=== PATIENT | female | born 1960 | race Caucasian/White ===

== ENCOUNTER 2016-08-22 02:55 | Emergency (ER) | payer OTHER ==
[2016-08-22 03:00] VITALS: BP 142/81
--- NOTE | 2016-11-22 23:18 | ED ---
David Hernandez Claudia, scribed for Geraldo Fabian MD on 08/22/16 at 0302 . Substance Abuse/Use - HPI Summary HPI Summary: Pt comes to the ED tonight seeking detox. Pt notes that her last ETOH consumption was at 5:30-6:00pm. She notes that she fell asleep and woke up shaking. She states that she tried to drink 1/2 a drink while she called the EMS but was unable to finish it. Pt left AMA. - History Of Current Complaint Stated Complaint: SHAKING Hx Obtained From: Patient - Allergies/Home Medications Allergies/Adverse Reactions: Allergies Allergy/AdvReac Type Severity Reaction Status Date / Time Iodine Allergy Severe Anaphylatic Verified 10/16/16 20:42 Shock Penicillins Allergy Severe Swelling Verified 10/16/16 20:42 Of Face,Lips,& Throat Shellfish Allergy Allergy Severe Anaphylatic Verified 10/16/16 20:42 Shock Sulfa Drugs Allergy Intermediate Rash Verified 10/16/16 20:42 Olanzapine [From Zyprexa] Allergy FLU LIKE Verified 10/16/16 20:42 SYMPTOMS Hydromorphone [From Dilaudid] AdvReac Intermediate Altered Verified 10/16/16 20: 42 Mental Status PMH/Surg Hx/FS Hx/Imm Hx Previously Healthy: Yes Endocrine/Hematology History: Reports: Hx Blood Transfusions - 2003, Hx Bone Marrow Disease, Hx Anemia - aplastic anemia, Hx Unexplained Bleeding Denies: Hx Anticoagulant Therapy, Hx Blood Disorders, Hx Diabetes, Hx Systemic Lupus Erythematosus, Hx Sickle Cell Disease, Hx Thyroid Disease, Other Endocrine/Hematological Disorders Cardiovascular History: Reports: Hx Hypertension, Other Cardiovascular Problems/ Disorders - HEART MURMUR Denies: Hx Aneurysm, Hx Angina, Hx Angioplasty, Hx Auto Implanted Cardiovert Defib, Hx Cardiac Arrest, Hx Cardiomegaly, Hx Congenital Heart Disease, Hx Congestive Heart Failure, Hx Coronary Artery Disease, Hx Deep Vein Thrombosis, Hx Embolism, Hx Hypercholesterolemia, Hx Hypotension, Hx Pacemaker/ICD, Hx Peripheral Vascular Disease, Hx Rheumatic Fever, Hx Syncope, Hx Valvular Heart Disease Respiratory History: Reports: Hx Seasonal Allergies Denies: Hx Asthma, Hx Chronic Bronchitis, Hx Chronic Obstructive Pulmonary Disease (COPD), Hx Cystic Fibrosis, Hx Lung Cancer, Hx Pleural Effusion, Hx Pneumonia, Hx Pulmonary Edema, Hx Pulmonary Embolism, Hx Sleep Apnea, Other Respiratory Problems/Disorders GI History: Reports: Hx Gastroesophageal Reflux Disease, Hx Ulcer - age 8 & 10 Denies: Hx Cirrhosis, Hx Crohn's Disease, Hx Diverticulosis, Hx Gall Bladder Disease, Hx Gastrointestinal Bleed, Hx Hiatal Hernia, Hx Irritable Bowel, Hx Jaundice, Hx Obstructive Bowel, Hx Ileostomy, Hx Pyloric Stenosis, Other GI Disorders History: Reports: Hx Kidney Stones - 2007, Other Problems/Disorders - urethritis Denies: Hx Acute Renal Failure, Hx Benign Prostatic Hyperplasia, Hx Chronic Renal Failure, Hx Dialysis, Hx Kidney Infection Musculoskeletal History: Reports: Hx Arthritis, Other Musculoskeletal History - fx 5th metatarsal 2 wks ago, wearing boot Denies: Hx Back Problems, Hx Bursitis, Hx Congenital Bone Abnormalities, Hx Fibromyalgia, Hx Gout, Hx Orthopedic Injury, Hx Osteoporosis, Hx Scoliosis, Hx Tendonitis Sensory History: Reports: Hx Contacts or Glasses - reading glasses Denies: Hx Cataracts, Hx Eye Injury, Hx Eye Prosthesis, Hx Glaucoma, Hx Legally Blind, Hx Macular Degeneration, Hx Vision Problem, Hx Deafness, Hx Hearing Aid, Hx Hearing Problem, Other Sensory Impairments Opthamlomology History: Reports: Hx Contacts or Glasses - reading glasses Denies: Hx Cataracts, Hx Eye Injury, Hx Eye Prosthesis, Hx Glaucoma, Hx Legally Blind, Hx Macular Degeneration, Hx Vision Problem, Other Sensory Impairments Neurological History: Reports: Other Neuro Impairments/Disorders - head injury Psychiatric History: Reports: Hx Anxiety, Hx Eating Disorder - anorexia and bulimia, Hx Depression, Hx Panic Disorder, Hx Post Traumatic Stress Disorder, Hx Inpatient Treatment - [facility], [facility], Hx Suicide Attempt - 1972, Hx Substance Abuse Denies: Hx Attention Deficit Hyperactivity Disorder, Hx Schizophrenia, Hx Bipolar Disorder, Hx of Violent Episodes Against Others, Other Psychiatric Issues/Disorders - Surgical History Surgery Procedure, Year, and Place: Attempted urethral enlargement age 7. Tubal ligation 1986. Breast implants 2006. Has had multiple implanted venous access devices; none currently. Hx Anesthesia Reactions: No - Immunization History Date of Tetanus Vaccine: up to date per patient Date of Influenza Vaccine: NONE Infectious Disease History: Reports: Hx Hepatitis - hep C Denies: Hx Clostridium Difficile, Hx Human Immunodeficiency Virus (HIV), Hx of Known/Suspected MRSA, Hx Shingles, Hx Tuberculosis, Hx Known/Suspected VRE, Hx Known/Suspected VRSA, History Other Infectious Disease - Family History Known Family History: Positive: Other - 'everything runs in the family' - Social History Alcohol Use: Daily Alcohol Amount: pt is a recovering alcoholic, pt reports using Vodka as pain med. this AM Hx Substance Use: No Substance Use Type: Reports: None Substance Use Comment - Amount & Last Used: 04/03/14 Hx Tobacco Use: Yes Smoking Status (MU): Light Every Day Tobacco Smoker Type: Cigarettes Length of Time of Smoking/Using Tobacco: 25 yrs Have You Smoked in the Last Year: No Review of Systems Negative: Fever Eyes: Negative ENT: Negative Cardiovascular: Negative Respiratory: Negative Gastrointestinal: Negative Genitourinary: Negative Musculoskeletal: Negative Skin: Negative Neurological: Other - "shaking" Psychological: Normal All Other Systems Reviewed And Are Negative: Yes Physical Exam Vital Signs On Initial Exam: Initial Vitals Temp Pulse Resp BP Pulse Ox 97.9 F 111 18 142/81 98 08/22/16 02:55 08/22/16 02:55 08/22/16 02:55 08/22/16 02:55 08/22/16 02:55 Diagnostics - Vital Signs Vital Signs Temp Pulse Resp BP Pulse Ox 08/22/16 02:55 97.9 F 111 18 142/81 98 - Laboratory Lab Statement: Any lab studies that have been ordered have been reviewed, and results considered in the medical decision making process. Course/Dx - Diagnoses Provider Diagnoses: Mood disorder Discharge - Discharge Plan Condition: Stable Disposition: LEFT WITHOUT BEING SEEN Referrals: Jeny Hensley MD [Primary Care Provider] - The documentation as recorded by the David mcnair Claudia accurately reflects the service I personally performed and the decisions made by , Geraldo Fabian MD.
== END 2016-08-22 03:02 | disposition left against medical advice (07) ==
LOC: ED 02:55
DX: R25.1 Tremor, unspecified (principal)

== ENCOUNTER 2016-10-04 10:18 | Emergency (ER) | payer OTHER ==
[2016-10-04 10:35] VITALS: BP 140/84
[2016-10-04] MEDS ORDERED: Ketorolac INJ* 60 MG/2 ML VIAL IM ONE (10:50)
--- NOTE | 2016-10-04 11:19 | RAD ---
HISTORY: Fall, injury and pain, right chest pain COMPARISONS: None VIEWS: 5, Frontal view of the chest with frontal and oblique views of the right hemithorax. FINDINGS: There is a minimally displaced fracture of the right ninth rib. There is no appreciable pneumothorax IMPRESSION: RIGHT NINTH RIB FRACTURE. NO APPRECIABLE PNEUMOTHORAX.
--- NOTE | 2016-10-04 11:24 | UC ---
Truncal Trauma HPI - HPI Summary HPI Summary: Fell last night hitting right side of back on the wooden arm of a chair, hurts to breath - History Of Current Complaint Chief Complaint: UCRespiratory Stated Complaint: RIB INJURY Time Seen by Provider: 10/04/16 10:48 Hx Obtained From: Patient ?: No Onset/Duration: Sudden Onset, Lasting Hours - 12, Still Present Onset Of Pain: Immediate Severity Initially: Moderate Severity Currently: Moderate Pain Intensity: 10 Pain Scale Used: 0-10 Numeric Mechanism Of Injury: Blunt Trauma, Fall From A Standing Position Aggravating Factor(s): Deep Breathing, Cough Alleviating factor(s): Nothing Associated Signs And Symptoms: Positive: Negative - Allergies/Home Medications Allergies/Adverse Reactions: Allergies Allergy/AdvReac Type Severity Reaction Status Date / Time Iodine Allergy Severe Anaphylatic Verified 10/04/16 10:24 Shock Penicillins Allergy Severe Swelling Verified 10/04/16 10:24 Of Face,Lips,& Throat Shellfish Allergy Allergy Severe Anaphylatic Verified 10/04/16 10:24 Shock Sulfa Drugs Allergy Intermediate Rash Verified 10/04/16 10:24 Olanzapine [From Zyprexa] Allergy FLU LIKE Verified 10/04/16 10:24 SYMPTOMS Hydromorphone [From Dilaudid] AdvReac Intermediate Altered Verified 10/04/16 10: 24 Mental Status Home Medications: Home Medications Gabapentin CAP(*) [Neurontin 100 mg CAP(*)] 1 cap PO QID 10/04/16 [History Confirmed 10/04/16] Nicotine Lozenge* 1 josé manuel PO 10/04/16 [History] PMH/Surg Hx/FS Hx/Imm Hx Previously Healthy: No - reports 3 months of sobriety Endocrine History Of: Denies: Diabetes, Thyroid Disease Cardiovascular History Of: Reports: Hypertension Denies: Pacemaker/ICD, Congestive Heart Failure, Deep Vein Thrombosis Respiratory History Of: Denies: COPD, Asthma, Pneumonia, Pulmonary Embolism GI/ History Of: Reports: Ulcer - age 8 & 10, Kidney Stones - 2007 Denies: Gastrointestinal Bleed, Gall Bladder Disease Psychological History Of: Reports: Anxiety, Depression Denies: Bipolar Disorder, Schizophrenia Cancer History Of: Denies: Lung Cancer Other History Of: Negative For: Anticoagulant Therapy - Surgical History Surgical History: Yes Surgery Procedure, Year, and Place: Attempted urethral enlargement age 7. Tubal ligation 1986. Breast implants 2006. Has had multiple implanted venous access devices; none currently. - Family History Known Family History: Positive: Other - 'everything runs in the family' - Social History Occupation: Unemployed Lives: With Family Alcohol Use: Occasionally Alcohol Amount: 3 months in recovery Substance Use Type: None, Marijuana Substance Use Comment - Amount & Last Used: 04/03/14 Smoking Status (MU): Light Every Day Tobacco Smoker Type: Cigarettes Length of Time of Smoking/Using Tobacco: 25 yrs Have You Smoked in the Last Year: No Household Exposure Type: Cigarettes - Immunization History Most Recent Influenza Vaccination: 2013 Most Recent Tetanus Shot: 2008 Most Recent Pneumonia Vaccination: none Review of Systems Constitutional: Negative Skin: Negative Eyes: Negative ENT: Negative Respiratory: Negative Cardiovascular: Chest Pain - right posterior ribs tender to palpation Gastrointestinal: Negative Genitourinary: Negative Motor: Negative Neurovascular: Negative Musculoskeletal: Negative Neurological: Negative Psychological: Negative All Other Systems Reviewed And Are Negative: Yes Physical Exam Triage Information Reviewed: Yes Appearance: Ill-Appearing - older than stated age, Pain Distress, Thin Vital Signs: Initial Vital Signs Temp 98.4 F 10/04/16 10:28 Pulse 81 10/04/16 10:28 Resp 20 10/04/16 10:28 BP 140/84 10/04/16 10:28 Pulse Ox 98 10/04/16 10:28 Vital Signs Reviewed: Yes Eye Exam: Normal Eyes: Positive: Conjunctiva Clear ENT Exam: Normal ENT: Positive: Normal ENT inspection, Hearing grossly normal. Negative: Nasal congestion, Nasal drainage, Trismus, Muffled/hoarse voice Neck exam: Normal Neck: Positive: Supple, Nontender, No Lymphadenopathy Respiratory Exam: Normal Respiratory: Positive: Lungs clear, Normal breath sounds, No respiratory distress, No accessory muscle use, Other: - right posterior chest wall tender. Negative: Chest non-tender Cardiovascular Exam: Normal Cardiovascular: Positive: RRR, No Murmur, Pulses Normal, Brisk Capillary Refill Abdominal Exam: Normal Abdomen Description: Positive: Nontender, No Organomegaly, Soft. Negative: CVA Tenderness (R), CVA Tenderness (L) Bowel Sounds: Positive: Present Musculoskeletal Exam: Normal Musculoskeletal: Positive: Strength Intact, ROM Intact, No Edema Neurological Exam: Normal Neurological: Positive: Alert, Muscle Tone Normal Psychological Exam: Normal Skin Exam: Normal Diagnostics - Laboratory Diagnostic Studies Completed/Ordered: min.displaced (r)9th rib fracture, non pneumo. Re-Evaluation - Re-Evaluation Second Eval Change: Improved - excellent pain control Truncal Trauma Course/Dx - Course Course Of Treatment: ice to ribs, continue toradal, encourage smoking cesasation , antiinflammatory med, follow with pcp prn - Differential Dx/Diagnosis Differential Diagnosis/HQI/PQRI: Chest Wall Contusion, Chest Wall Abrasion, Rib Fracture Provider Diagnoses: minimally displacted fx of (R) 9th rib, nicotine dependant Discharge - Discharge Plan Condition: Stable Disposition: HOME Prescriptions: Ketorolac TAB (NF) [Toradol TAB (NF)] 10 mg PO TID PRN #15 tab PRN Reason: rib pain Patient Education Materials: Rib Fracture (ED), Ice Pack Application (ED), Rib Contusion (ED) Referrals: Karen Osuna DRESS CUTTER [Primary Care Provider] - 2 Days Additional Instructions: [facility] with using Nicotine Replacement to quit smoking that will have a huge and positive effect on your ability to heal from the injury
== END 2016-10-04 11:33 | disposition home or self-care (01) ==
LOC: UCEAST 10:18
DX: S22.31XB Fracture of one rib, right side, initial encounter for open fracture (principal); W08.XXXA Fall from other furniture, initial encounter; Z88.5 Allergy status to narcotic agent; I10 Essential (primary) hypertension
CPT/HCPCS: 81002; 87086; 96372; 99212; G0463; J1885

== ENCOUNTER 2016-10-16 20:24 | Emergency (ER) | payer OTHER ==
[2016-10-16 21:56] VITALS: BP 121/60
== END 2016-10-16 21:55 | disposition left against medical advice (07) ==
LOC: ED 20:24
DX: M79.672 Pain in left foot (principal); Z53.21 Procedure and treatment not carried out due to patient leaving prior to being seen by health care provider

== ENCOUNTER 2017-11-25 13:09 | Emergency (ER) | payer SELFPAY ==
[2017-11-25] MEDS ORDERED: Thiamine IV 100 MG, Folic Acid IV* 1 MG, Multiple Vitamin IV ADULT* 10 ML in NS 0.9% 10... IV ONE (13:26)
[2017-11-25] MEDS ORDERED: LORazepam INJ* 2 MG/ML 1 ML VIAL IV ONE (13:26)
[2017-11-25] MEDS ORDERED: Folic Acid IV* 50 MG/10 ML VIAL ONE (13:50)
[2017-11-25] MEDS ORDERED: Multiple Vitamin IV ADULT* 10 ML VIAL ONE (13:50)
[2017-11-25] MEDS ORDERED: NS 0.9% 1000 ML* 1,000 ML ONE (13:50)
[2017-11-25 13:52] LABS: ABS Basophils 0 10^3/ul (0-0.2); ABS Eosinophils 0 10^3/ul (0-0.6); ABS Lymphocytes 2.5 10^3/ul (1.0-4.8); ABS Monocytes 0.5 10^3/ul (0-0.8); ABS Neutrophils 2.3 10^3/ul (1.5-7.7); ABS Nucleated RBC 0 10^3/ul; Eosinophil % 0.8 % (0-6); Hematocrit 46 % (35-47); Lymphocyte % 46.6 % (25-47); Mean Corpuscular HGB Conc 35 g/dl (31-36); Mean Corpuscular Hemoglobin 35 pg (27-31); Mean Corpuscular Volume 101 fL (80-97); Nucleated Red Blood Cells % 0.1; Platelet Count 245 10^3/ul (150-450); Red Blood Count 4.54 10^6/ul (4.0-5.4); Red Cell Distribution Width 14 % (10.5-15); White Blood Count 5.4 10^3/ul (3.5-10.8)
[2017-11-25] MEDS ORDERED: Thiamine IV* 100 MG/ML 2 ML VIAL ONE (13:58)
[2017-11-25] MEDS ORDERED: LORazepam TAB(*) 1 MG PO ONE (16:04)
[2017-11-25] MEDS ORDERED: Mouth Piece, Nicotine* 1 EACH CARTRIDGE INH PRN (16:04)
[2017-11-25] MEDS ORDERED: Nicotine Inhaler* 10 MG AMP INH ONE (16:04)
[2017-11-25] MEDS ORDERED: Mouth Piece, Nicotine* 1 EACH CARTRIDGE ONE (16:08)
--- NOTE | 2017-11-25 19:36 | ED ---
Shazia Hernandez Abhishek, scribed for Katie Reyes MD on 11/25/17 at 1933 . Progress - Progress Note Progress Note: The pt was signed out from Dr. Limon awaiting EtOH metabolism. The pt was able to walk without assistance and is awake and alert upon evaluation. Course/Dx - Course Course Of Treatment: The pt will be d/c home with a dx of EtOH intoxication. - Diagnoses Provider Diagnoses: Alcohol intoxication Discharge - Sign-Out/Discharge Documenting (check all that apply): Discharge - Home, Receiving Sign-Out Receiving patient FROM: Nacho Limon - Discharge Plan Condition: Stable Disposition: HOME Referrals: Jeny Hensley MD [Primary Care Provider] - The documentation as recorded by the Shazia mcnair Abhishek accurately reflects the service I personally performed and the decisions made by Eric mackey Abdul, MD.
[2017-11-25 19:43] VITALS: BP 115/81
--- NOTE | 2017-11-27 11:00 | ED ---
Ji Hernandez Angela, scribed for Nacho Limon MD on 11/25/17 at 1330 . Psychiatric Complaint - HPI Summary HPI Summary: This pt is a 57 y/o female presenting to [facility] via EMS for anxiety and alcohol intoxication. Pt reports that she has had panic attacks for the past 1 week. She states she has been drinking wine every day for the past week and notes she had "a lot" of wine. Today pt reports she had 4 glasses of wine to alleviate her panic attacks with no relief. Denies SI or HI. Pt notes she has hx of substance abuse and began drinking alcohol again 1 week ago due to anxiety. Denies drug use. - History Of Current Complaint Chief Complaint: EDPsychosocial Time Seen by Provider: 11/25/17 13:20 Hx Obtained From: Patient Onset/Duration: Lasting Days, Still Present Timing: Days Severity Currently: Moderate Character: Anxious Aggravating Factor(s): Nothing Alleviating Factor(s): Nothing Associated Signs And Symptoms: Positive: Negative Has Suicidal: Denies: Thoughts, With A Plan Has Homicidal: Denies: Thoughts, With A Plan - Allergies/Home Medications Allergies/Adverse Reactions: Allergies Allergy/AdvReac Type Severity Reaction Status Date / Time hydromorphone Allergy Altered Verified 11/25/17 13:23 Mental Status iodine Allergy Anaphylatic Verified 11/25/17 13:23 Shock olanzapine [From Zyprexa] Allergy Anaphylatic Verified 11/25/17 13:23 Shock Penicillins Allergy Swelling Verified 11/25/17 13:23 Of Face,Lips,& Throat shellfish derived Allergy Anaphylatic Verified 11/25/17 13:23 Shock Sulfa (Sulfonamide Allergy Rash Verified 11/25/17 13:23 Antibiotics) Home Medications: Home Medications NK [No Home Medications Reported] 11/25/17 [History Confirmed 11/25/17] PMH/Surg Hx/FS Hx/Imm Hx Endocrine/Hematology History: Reports: Hx Blood Transfusions - 2004, Hx Bone Marrow Disease, Hx Anemia - aplastic anemia, Hx Unexplained Bleeding Denies: Hx Anticoagulant Therapy, Hx Blood Disorders, Hx Diabetes, Hx Systemic Lupus Erythematosus, Hx Sickle Cell Disease, Hx Thyroid Disease, Other Endocrine/Hematological Disorders Cardiovascular History: Reports: Hx Hypertension, Other Cardiovascular Problems/ Disorders - HEART MURMUR Denies: Hx Aneurysm, Hx Angina, Hx Angioplasty, Hx Auto Implanted Cardiovert Defib, Hx Cardiac Arrest, Hx Cardiomegaly, Hx Congenital Heart Disease, Hx Congestive Heart Failure, Hx Coronary Artery Disease, Hx Deep Vein Thrombosis, Hx Embolism, Hx Hypercholesterolemia, Hx Hypotension, Hx Pacemaker/ICD, Hx Peripheral Vascular Disease, Hx Rheumatic Fever, Hx Syncope, Hx Valvular Heart Disease Respiratory History: Reports: Hx Seasonal Allergies Denies: Hx Asthma, Hx Chronic Bronchitis, Hx Chronic Obstructive Pulmonary Disease (COPD), Hx Cystic Fibrosis, Hx Lung Cancer, Hx Pleural Effusion, Hx Pneumonia, Hx Pulmonary Edema, Hx Pulmonary Embolism, Hx Sleep Apnea, Other Respiratory Problems/Disorders GI History: Reports: Hx Gastroesophageal Reflux Disease, Hx Ulcer - age 8 & 10 Denies: Hx Cirrhosis, Hx Crohn's Disease, Hx Diverticulosis, Hx Gall Bladder Disease, Hx Gastrointestinal Bleed, Hx Hiatal Hernia, Hx Irritable Bowel, Hx Jaundice, Hx Obstructive Bowel, Hx Ileostomy, Hx Pyloric Stenosis, Other GI Disorders History: Reports: Hx Kidney Stones - 2007, Other Problems/Disorders - urethritis Denies: Hx Acute Renal Failure, Hx Benign Prostatic Hyperplasia, Hx Chronic Renal Failure, Hx Dialysis, Hx Kidney Infection Musculoskeletal History: Reports: Hx Arthritis, Other Musculoskeletal History - fx 5th metatarsal 2 wks ago, wearing boot Denies: Hx Back Problems, Hx Bursitis, Hx Congenital Bone Abnormalities, Hx Fibromyalgia, Hx Gout, Hx Orthopedic Injury, Hx Osteoporosis, Hx Scoliosis, Hx Tendonitis Sensory History: Reports: Hx Contacts or Glasses - reading glasses Denies: Hx Cataracts, Hx Eye Injury, Hx Eye Prosthesis, Hx Glaucoma, Hx Legally Blind, Hx Macular Degeneration, Hx Vision Problem, Hx Deafness, Hx Hearing Aid, Hx Hearing Problem, Other Sensory Impairments Opthamlomology History: Reports: Hx Contacts or Glasses - reading glasses Denies: Hx Cataracts, Hx Eye Injury, Hx Eye Prosthesis, Hx Glaucoma, Hx Legally Blind, Hx Macular Degeneration, Hx Vision Problem, Other Sensory Impairments Neurological History: Reports: Other Neuro Impairments/Disorders - head injury Psychiatric History: Reports: Hx Anxiety, Hx Eating Disorder - anorexia and bulimia, Hx Depression, Hx Panic Disorder, Hx Post Traumatic Stress Disorder, Hx Inpatient Treatment - [facility], Hx Suicide Attempt - 1972, Hx Substance Abuse Denies: Hx Attention Deficit Hyperactivity Disorder, Hx Schizophrenia, Hx Bipolar Disorder, Hx of Violent Episodes Against Others, Other Psychiatric Issues/Disorders - Surgical History Surgery Procedure, Year, and Place: Attempted urethral enlargement age 7. Tubal ligation 1986. Breast implants 2006. Has had multiple implanted venous access devices; none currently. Hx Anesthesia Reactions: No - Immunization History Date of Tetanus Vaccine: up to date per patient Date of Influenza Vaccine: NONE Infectious Disease History: No Infectious Disease History: Denies: Hx Clostridium Difficile, Hx Hepatitis, Hx Human Immunodeficiency Virus (HIV), Hx of Known/Suspected MRSA, Hx Shingles, Hx Tuberculosis, Hx Known/ Suspected VRE, Hx Known/Suspected VRSA, History Other Infectious Disease, Traveled Outside the [place] in Last 30 Days - Family History Known Family History: Positive: Other - 'everything runs in the family' - Social History Alcohol Use: wine Alcohol Amount: wine this week Hx Substance Use: No Substance Use Type: Reports: None Substance Use Comment - Amount & Last Used: 04/03/14 Hx Tobacco Use: Yes Smoking Status (MU): Light Every Day Tobacco Smoker Type: Cigarettes Length of Time of Smoking/Using Tobacco: 25 yrs Have You Smoked in the Last Year: No Review of Systems Negative: Fever, Chills Eyes: Negative ENT: Negative Cardiovascular: Negative Respiratory: Negative Skin: Negative Positive: Anxious All Other Systems Reviewed And Are Negative: Yes Physical Exam - Summary Physical Exam Summary: VITAL SIGNS: Reviewed. GENERAL: Patient is a well-developed and nourished female who is lying comfortable in the stretcher. Patient is not in any acute respiratory distress. Pt is intoxicated with alcohol. HEAD AND FACE: No signs of trauma. No ecchymosis, hematomas or skull depressions. No sinus tenderness. EYES: PERRLA, EOMI x 2, No injected conjunctiva, no nystagmus. EARS: Hearing grossly intact. Ear canals and tympanic membranes are within normal limits. MOUTH: Oropharynx within normal limits. NECK: Supple, trachea is midline, no adenopathy, no JVD, no carotid bruit, no c- spine tenderness, neck with full ROM. CHEST: Symmetric, no tenderness at palpation LUNGS: Clear to auscultation bilaterally. No wheezing or crackles. CVS: Regular rate and rhythm, S1 and S2 present, no murmurs or gallops appreciated. ABDOMEN: Soft, non-tender. No signs of distention. No rebound no guarding, and no masses palpated. Bowel sounds are normal. EXTREMITIES: FROM in all major joints, no edema, no cyanosis or clubbing. NEURO: Alert and oriented x 3. No acute neurological deficits. Speech is normal and follows commands. SKIN: Dry and warm Triage Information Reviewed: Yes Vital Signs On Initial Exam: Initial Vitals Temp Pulse Resp BP Pulse Ox 98.3 F 91 17 139/89 96 11/25/17 13:19 11/25/17 13:19 11/25/17 13:19 11/25/17 13:19 11/25/17 13:19 Vital Signs Reviewed: Yes Diagnostics - Vital Signs Vital Signs Temp Pulse Resp BP Pulse Ox 11/25/17 13:20 95 16 96 11/25/17 13:19 98.3 F 91 17 139/89 96 - Laboratory Result Diagrams: 11/25/17 13:35 11/25/17 13:35 Lab Statement: Any lab studies that have been ordered have been reviewed, and results considered in the medical decision making process. Course/Dx - Course Assessment/Plan: This pt is a 57 y/o female presenting to [facility] via EMS for anxiety and alcohol intoxication. Pt reports that she has had panic attacks for the past 1 week. She states she has been drinking wine every day for the past week and notes she had "a lot" of wine. Today pt reports she had 4 glasses of wine to alleviate her panic attacks with no relief. Denies SI or HI. Pt notes she has hx of substance abuse and began drinking alcohol again 1 week ago due to anxiety. Denies drug use. Test results without any significant abnormalities except for serum alcohol of 321. Pt will be sober at approximately 23:30. Pt is currently stable. Therefore pt will be signed out to Dr. Reyes, pending disposition, awaiting alcohol metabolism. Pt is hemodynamically stable, alert and oriented x3. - Differential Dx/Clinical Impression Provider Diagnosis: Alcohol intoxication Discharge - Sign-Out/Discharge Documenting (check all that apply): Sign-Out Patient Signing out patient TO: Katie Reyes - Discharge Plan Condition: Stable Referrals: Jeny Hensley MD [Primary Care Provider] - The documentation as recorded by the Ji mcnair Angela accurately reflects the service I personally performed and the decisions made by , Nacho Limon MD.
== END 2017-11-25 19:48 | disposition home or self-care (01) ==
LOC: ED 13:09
DX: F10.129 Alcohol abuse with intoxication, unspecified (principal); Y90.8 Blood alcohol level of 240 mg/100 ml or more; F41.0 Panic disorder [episodic paroxysmal anxiety]; D75.9 Disease of blood and blood-forming organs, unspecified; D61.9 Aplastic anemia, unspecified; I10 Essential (primary) hypertension; K21.9 Gastro-esophageal reflux disease without esophagitis; F32.9 Major depressive disorder, single episode, unspecified; Z88.3 Allergy status to other anti-infective agents; Z88.5 Allergy status to narcotic agent; Z88.0 Allergy status to penicillin; Z88.2 Allergy status to sulfonamides; Z88.8 Allergy status to other drugs, medicaments and biological substances; Z87.442 Personal history of urinary calculi; Z87.891 Personal history of nicotine dependence
CPT/HCPCS: 36415; 80053; 80320; 80329; 84443; 85025; 96374; 99283; A9270-GY; G0480; J2060; J3411

== ENCOUNTER → 2017-12-31 09:06 | Emergency (ER) | payer SELFPAY ==
[~2017-12-31 09:06] MED LIST: LORazepam TAB(*) 1 MG PO ONE
[2017-12-31 10:02] LABS: ABS Basophils 0 10^3/ul (0-0.2); ABS Eosinophils 0.1 10^3/ul (0-0.6); ABS Lymphocytes 1.8 10^3/ul (1.0-4.8); ABS Monocytes 0.5 10^3/ul (0-0.8); ABS Neutrophils 2.8 10^3/ul (1.5-7.7); ABS Nucleated RBC 0 10^3/ul; Eosinophil % 1.1 % (0-6); Hematocrit 40 % (35-47); Hemoglobin 14.3 g/dl (12.0-16.0); Lymphocyte % 34.5 % (25-47); Mean Corpuscular HGB Conc 36 g/dl (31-36); Mean Corpuscular Hemoglobin 37 pg (27-31); Mean Corpuscular Volume 103 fL (80-97); Mean Platelet Volume 8.1 um3 (7.4-10.4); Nucleated Red Blood Cells % 0; Platelet Count 331 10^3/ul (150-450); Red Cell Distribution Width 14 % (10.5-15); White Blood Count 5.2 10^3/ul (3.5-10.8)
[2017-12-31 10:20] LABS: EGFR Non-African American 97.1 (>60)
[2017-12-31 10:52] LABS: Urine Appearance Clear; Urine Blood 2+ (Negative); Urine Color Yellow; Urine Ketones Trace (Negative); Urine Protein 2+(100 mg/dL) (Negative); Urine Specific Gravity 1.011 (1.010-1.030); Urine Urobilinogen Negative (Negative)
[2017-12-31 17:37] VITALS: BP 148/91
--- NOTE | 2017-12-31 18:23 | ED ---
Carmenza Hernandez Tenzin, scribed for Kyaw Aquino MD on 12/31/17 at 1015 . Psychiatric Complaint - HPI Summary HPI Summary: Pt is a 57 years old female presenting to the ED complaining of anxiety and suicidal thoughts today. She also complains of insomnia over the last few weeks and flashbacks. She has a past medical history of PTSD and aplastic anemia. - History Of Current Complaint Chief Complaint: EDMentalHealth Time Seen by Provider: 12/31/17 09:20 Hx Obtained From: Patient Onset/Duration: Lasting Weeks - in the last few months. Timing: Weeks Severity Initially: Mild Severity Currently: Mild Character: Anxious Aggravating Factor(s): Nothing Alleviating Factor(s): Nothing Associated Signs And Symptoms: Positive: Sleep Disturbance Related History: Positive For: Prior Psychiatric Issues Has Suicidal: Reports: Thoughts - Allergies/Home Medications Allergies/Adverse Reactions: Allergies Allergy/AdvReac Type Severity Reaction Status Date / Time hydromorphone Allergy Altered Verified 12/31/17 09:37 Mental Status iodine Allergy Anaphylatic Verified 12/31/17 09:37 Shock olanzapine [From Zyprexa] Allergy Anaphylatic Verified 12/31/17 09:37 Shock Penicillins Allergy Swelling Verified 12/31/17 09:37 Of Face,Lips,& Throat shellfish derived Allergy Anaphylatic Verified 12/31/17 09:37 Shock Sulfa (Sulfonamide Allergy Rash Verified 12/31/17 09:37 Antibiotics) PMH/Surg Hx/FS Hx/Imm Hx Endocrine/Hematology History: Reports: Hx Blood Transfusions - 2004, Hx Bone Marrow Disease, Hx Anemia - aplastic anemia, Hx Unexplained Bleeding Denies: Hx Anticoagulant Therapy, Hx Blood Disorders, Hx Diabetes, Hx Systemic Lupus Erythematosus, Hx Sickle Cell Disease, Hx Thyroid Disease, Other Endocrine/Hematological Disorders Cardiovascular History: Reports: Hx Hypertension, Other Cardiovascular Problems/ Disorders - HEART MURMUR Denies: Hx Aneurysm, Hx Angina, Hx Angioplasty, Hx Auto Implanted Cardiovert Defib, Hx Cardiac Arrest, Hx Cardiomegaly, Hx Congenital Heart Disease, Hx Congestive Heart Failure, Hx Coronary Artery Disease, Hx Deep Vein Thrombosis, Hx Embolism, Hx Hypercholesterolemia, Hx Hypotension, Hx Pacemaker/ICD, Hx Peripheral Vascular Disease, Hx Rheumatic Fever, Hx Syncope, Hx Valvular Heart Disease Respiratory History: Reports: Hx Seasonal Allergies Denies: Hx Asthma, Hx Chronic Bronchitis, Hx Chronic Obstructive Pulmonary Disease (COPD), Hx Cystic Fibrosis, Hx Lung Cancer, Hx Pleural Effusion, Hx Pneumonia, Hx Pulmonary Edema, Hx Pulmonary Embolism, Hx Sleep Apnea, Other Respiratory Problems/Disorders GI History: Reports: Hx Gastroesophageal Reflux Disease, Hx Ulcer - age 8 & 10 Denies: Hx Cirrhosis, Hx Crohn's Disease, Hx Diverticulosis, Hx Gall Bladder Disease, Hx Gastrointestinal Bleed, Hx Hiatal Hernia, Hx Irritable Bowel, Hx Jaundice, Hx Obstructive Bowel, Hx Ileostomy, Hx Pyloric Stenosis, Other GI Disorders History: Reports: Hx Kidney Stones - 2007, Other Problems/Disorders - urethritis Denies: Hx Acute Renal Failure, Hx Benign Prostatic Hyperplasia, Hx Chronic Renal Failure, Hx Dialysis, Hx Kidney Infection Musculoskeletal History: Reports: Hx Arthritis, Other Musculoskeletal History - fx 5th metatarsal 2 wks ago, wearing boot Denies: Hx Back Problems, Hx Bursitis, Hx Congenital Bone Abnormalities, Hx Fibromyalgia, Hx Gout, Hx Orthopedic Injury, Hx Osteoporosis, Hx Scoliosis, Hx Tendonitis Sensory History: Reports: Hx Contacts or Glasses - reading glasses Denies: Hx Cataracts, Hx Eye Injury, Hx Eye Prosthesis, Hx Glaucoma, Hx Legally Blind, Hx Macular Degeneration, Hx Vision Problem, Hx Deafness, Hx Hearing Aid, Hx Hearing Problem, Other Sensory Impairments Opthamlomology History: Reports: Hx Contacts or Glasses - reading glasses Denies: Hx Cataracts, Hx Eye Injury, Hx Eye Prosthesis, Hx Glaucoma, Hx Legally Blind, Hx Macular Degeneration, Hx Vision Problem, Other Sensory Impairments Neurological History: Reports: Other Neuro Impairments/Disorders - head injury Psychiatric History: Reports: Hx Anxiety, Hx Eating Disorder - anorexia and bulimia, Hx Depression, Hx Panic Disorder, Hx Post Traumatic Stress Disorder, Hx Inpatient Treatment - [facility], [facility], Hx Suicide Attempt - 1972, Hx Substance Abuse Denies: Hx Attention Deficit Hyperactivity Disorder, Hx Schizophrenia, Hx Bipolar Disorder, Hx of Violent Episodes Against Others, Other Psychiatric Issues/Disorders - Surgical History Surgery Procedure, Year, and Place: Attempted urethral enlargement age 7. Tubal ligation 1986. Breast implants 2006. Has had multiple implanted venous access devices; none currently. Hx Anesthesia Reactions: No - Immunization History Date of Tetanus Vaccine: up to date per patient Date of Influenza Vaccine: NONE Infectious Disease History: No Infectious Disease History: Denies: Hx Clostridium Difficile, Hx Hepatitis, Hx Human Immunodeficiency Virus (HIV), Hx of Known/Suspected MRSA, Hx Shingles, Hx Tuberculosis, Hx Known/ Suspected VRE, Hx Known/Suspected VRSA, History Other Infectious Disease, Traveled Outside the [place] in Last 30 Days - Family History Known Family History: Positive: Other - 'everything runs in the family' - Social History Alcohol Use: Daily Alcohol Amount: wine this week Hx Substance Use: No Substance Use Type: Reports: None Substance Use Comment - Amount & Last Used: 04/03/14 Hx Tobacco Use: Yes Smoking Status (MU): Light Every Day Tobacco Smoker Type: Cigarettes Length of Time of Smoking/Using Tobacco: 25 yrs Have You Smoked in the Last Year: No Review of Systems Positive: Other - flashes Positive: Anxious, Other - difficulty sleeping, suicidal thoughts All Other Systems Reviewed And Are Negative: Yes Physical Exam - Summary Physical Exam Summary: Appearance: The patient is well-nourished in no acute distress and in no acute pain. Skin: The skin is warm and dry and skin color reflects adequate perfusion. HEENT: The head is normocephalic and atraumatic. The pupils are equal and reactive. The conjunctivae are clear and without drainage. Nares are patent and without drainage. Mouth reveals moist mucous membranes and the throat is without erythema and exudate. The external ears are intact. The ear canals are patent and without drainage. The tympanic membranes are intact. Neck: the neck is supple with full range of motion and non-tender. There are no carotid bruits. There is no neck vein distension. Respiratory: Chest is non-tender. Lungs are clear to auscultation and breath sounds are symmetrical and equal. Cardiovascular: Heart is regular rate and rhythm. There is no murmur or rub auscultated. There is no peripheral edema and pulses are symmetrical and equal. Abdomen: The abdomen is soft and non-tender. There are normal bowel sounds heard in all four quadrants and there is no organomegaly palpated. Musculoskeletal: There is no back tenderness noted. Extremities are non-tender with full range of motion. There is good capillary refill. There is no peripheral edema or calf tenderness elicited. Neurological: Patient is alert and oriented to person, place and time. The patient has symmetrical motor strength in all four extremities. Cranial nerves are grossly intact. Deep tendon reflexes are symmetrical and equal in all four extremities. Psychiatric: The patient reports suicidal thoughts. Triage Information Reviewed: Yes Vital Signs On Initial Exam: Initial Vitals Temp Pulse Resp BP Pulse Ox 98.5 F 100 17 139/90 97 12/31/17 09:19 12/31/17 09:19 12/31/17 09:19 12/31/17 09:19 12/31/17 09:19 Vital Signs Reviewed: Yes Diagnostics - Vital Signs Vital Signs Temp Pulse Resp BP Pulse Ox 12/31/17 09:19 98.5 F 100 17 139/90 97 - Laboratory Lab Results: Lab Results 12/31/17 Range/Units 09:51 WBC 5.2 (3.5-10.8) 10^3/ul RBC 3.90 L (4.0-5.4) 10^6/ul Hgb 14.3 (12.0-16.0) g/dl Hct 40 (35-47) % MCV 103 H (80-97) fL MCH 37 H (27-31) pg MCHC 36 (31-36) g/dl RDW 14 (10.5-15) % Plt Count 331 (150-450) 10^3/ul MPV 8.1 (7.4-10.4) um3 Neut % (Auto) 54.3 (38-83) % Lymph % (Auto) 34.5 (25-47) % Mathews % (Auto) 9.4 H (0-7) % Eos % (Auto) 1.1 (0-6) % Baso % (Auto) 0.7 (0-2) % Absolute Neuts (auto) 2.8 (1.5-7.7) 10^3/ul Absolute Lymphs (auto) 1.8 (1.0-4.8) 10^3/ul Absolute Monos (auto) 0.5 (0-0.8) 10^3/ul Absolute Eos (auto) 0.1 (0-0.6) 10^3/ul Absolute Basos (auto) 0 (0-0.2) 10^3/ul Absolute Nucleated RBC 0 10^3/ul Nucleated RBC % 0 Result Diagrams: 12/31/17 09:51 12/31/17 09:51 Lab Statement: Any lab studies that have been ordered have been reviewed, and results considered in the medical decision making process. Course/Dx - Course Course Of Treatment: Ms. Mckeon presented voluntarily for a MHE, was medically cleared and had a MHE. They felt that she was safe for D/C. - Differential Dx/Clinical Impression Provider Diagnosis: PTSD (post-traumatic stress disorder), Alcohol use Discharge - Sign-Out/Discharge Documenting (check all that apply): Discharge/Admit/Transfer - Discharge Plan Condition: Stable Disposition: HOME Patient Education Materials: Suicide Prevention for Adults (ED) Referrals: Jeny Hensley MD [Primary Care Provider] - - Billing Disposition and Condition Condition: STABLE Disposition: HOME The documentation as recorded by the Carmenza mcnair Tenzin accurately reflects the service I personally performed and the decisions made by me, Kyaw Aquino MD.
== END | disposition home or self-care (01) ==
LOC: ED 09:06
DX: F43.10 Post-traumatic stress disorder, unspecified (principal); Z72.89 Other problems related to lifestyle; F17.210 Nicotine dependence, cigarettes, uncomplicated; Z88.0 Allergy status to penicillin; Z88.8 Allergy status to other drugs, medicaments and biological substances; Z88.2 Allergy status to sulfonamides
CPT/HCPCS: 36415; 80053; 80307; 80320; 80329; 81003; 81015; 84443; 84484; 85025; 87086; 99284; A9270-GY; G0480

== ENCOUNTER 2018-04-30 00:19 | Emergency (ER) | payer SELFPAY ==
--- NOTE | 2018-04-30 01:03 | ED ---
Substance Abuse/Use - HPI Summary HPI Summary: The patient is a 57 y/o F presenting to [facility] with a chief complaint of ' EtOH withdrawal' with tremors and diaphoresis in the last few days. She states that she used to be alcoholic, but had been sober for the last twenty years up until five weeks ago after she fell and broke her right cheekbone. She reported that having the alcohol mediates her panic attacks so she started drinking again. In the last week, she has noticed that she's been having the tremors and diaphoresis since cutting down on the amount of alcohol she's been drinking because she doesn't want to drink alcohol. She started out with drinking wine, but has been drinking about 3/4 L of liquor a day everyday in the last five weeks. She states that she was supposed to have an agency come to help her yesterday, but no one showed up. She states that when she woke up, she took a ' big swig of alcohol' and called 911. Her sister and mother have from EtOH withdrawal. He has hx of HTN, anemia, and heart murmur. - History Of Current Complaint Chief Complaint: EDDetoxRequest Stated Complaint: DETOX Time Seen by Provider: 04/30/18 00:29 Hx Obtained From: Patient Onset/Duration of Drug/ETOH Abuse: Weeks - five Ingestion History: Amount Ingested - 3/4L a day Overdose Characteristics: Oral Timing Of Abuse: Daily Severity Initially: Severe Severity Currently: Severe Character: Other - panic attacks Aggravating Factor(s): Other - panic attacks Alleviating Factor(s): Nothing Associated Signs And Symptoms: Tremulous, Other: - diaphoretic Related Hx: Drug/Alcohol Last Used @ - EtOH right before arrival - Allergies/Home Medications Allergies/Adverse Reactions: Allergies Allergy/AdvReac Type Severity Reaction Status Date / Time hydromorphone Allergy Altered Verified 12/31/17 09:37 Mental Status iodine Allergy Anaphylatic Verified 12/31/17 09:37 Shock olanzapine [From Zyprexa] Allergy Anaphylatic Verified 12/31/17 09:37 Shock Penicillins Allergy Swelling Verified 12/31/17 09:37 Of Face,Lips,& Throat shellfish derived Allergy Anaphylatic Verified 12/31/17 09:37 Shock Sulfa (Sulfonamide Allergy Rash Verified 12/31/17 09:37 Antibiotics) PMH/Surg Hx/FS Hx/Imm Hx Endocrine/Hematology History: Reports: Hx Blood Transfusions - 2004, Hx Bone Marrow Disease, Hx Anemia - aplastic anemia, Hx Unexplained Bleeding Denies: Hx Anticoagulant Therapy, Hx Blood Disorders, Hx Diabetes, Hx Systemic Lupus Erythematosus, Hx Sickle Cell Disease, Hx Thyroid Disease, Other Endocrine/Hematological Disorders Cardiovascular History: Reports: Hx Hypertension, Other Cardiovascular Problems/ Disorders - HEART MURMUR Denies: Hx Aneurysm, Hx Angina, Hx Angioplasty, Hx Auto Implanted Cardiovert Defib, Hx Cardiac Arrest, Hx Cardiomegaly, Hx Congenital Heart Disease, Hx Congestive Heart Failure, Hx Coronary Artery Disease, Hx Deep Vein Thrombosis, Hx Embolism, Hx Hypercholesterolemia, Hx Hypotension, Hx Pacemaker/ICD, Hx Peripheral Vascular Disease, Hx Rheumatic Fever, Hx Syncope, Hx Valvular Heart Disease Respiratory History: Reports: Hx Seasonal Allergies Denies: Hx Asthma, Hx Chronic Bronchitis, Hx Chronic Obstructive Pulmonary Disease (COPD), Hx Cystic Fibrosis, Hx Lung Cancer, Hx Pleural Effusion, Hx Pneumonia, Hx Pulmonary Edema, Hx Pulmonary Embolism, Hx Sleep Apnea, Other Respiratory Problems/Disorders GI History: Reports: Hx Gastroesophageal Reflux Disease, Hx Ulcer - age 8 & 10 Denies: Hx Cirrhosis, Hx Crohn's Disease, Hx Diverticulosis, Hx Gall Bladder Disease, Hx Gastrointestinal Bleed, Hx Hiatal Hernia, Hx Irritable Bowel, Hx Jaundice, Hx Obstructive Bowel, Hx Ileostomy, Hx Pyloric Stenosis, Other GI Disorders History: Reports: Hx Kidney Stones - 2007, Other Problems/Disorders - urethritis Denies: Hx Acute Renal Failure, Hx Benign Prostatic Hyperplasia, Hx Chronic Renal Failure, Hx Dialysis, Hx Kidney Infection Musculoskeletal History: Reports: Hx Arthritis, Other Musculoskeletal History - fx 5th metatarsal 2 wks ago, wearing boot Denies: Hx Back Problems, Hx Bursitis, Hx Congenital Bone Abnormalities, Hx Fibromyalgia, Hx Gout, Hx Orthopedic Injury, Hx Osteoporosis, Hx Scoliosis, Hx Tendonitis Sensory History: Reports: Hx Contacts or Glasses - reading glasses Denies: Hx Cataracts, Hx Eye Injury, Hx Eye Prosthesis, Hx Glaucoma, Hx Legally Blind, Hx Macular Degeneration, Hx Vision Problem, Hx Deafness, Hx Hearing Aid, Hx Hearing Problem, Other Sensory Impairments Opthamlomology History: Reports: Hx Contacts or Glasses - reading glasses Denies: Hx Cataracts, Hx Eye Injury, Hx Eye Prosthesis, Hx Glaucoma, Hx Legally Blind, Hx Macular Degeneration, Hx Vision Problem, Other Sensory Impairments Neurological History: Reports: Other Neuro Impairments/Disorders - head injury Psychiatric History: Reports: Hx Anxiety, Hx Eating Disorder - anorexia and bulimia, Hx Depression, Hx Panic Disorder, Hx Post Traumatic Stress Disorder, Hx Inpatient Treatment - [facility], Hx [facility], Hx Suicide Attempt - 1972, Hx Substance Abuse Denies: Hx Attention Deficit Hyperactivity Disorder, Hx Schizophrenia, Hx Bipolar Disorder, Hx of Violent Episodes Against Others, Other Psychiatric Issues/Disorders - Surgical History Surgery Procedure, Year, and Place: Attempted urethral enlargement age 7. Tubal ligation 1986. Breast implants 2006. Has had multiple implanted venous access devices; none currently. Hx Anesthesia Reactions: No - Immunization History Date of Tetanus Vaccine: up to date per patient Date of Influenza Vaccine: NONE Infectious Disease History: No Infectious Disease History: Denies: Hx Clostridium Difficile, Hx Hepatitis, Hx Human Immunodeficiency Virus (HIV), Hx of Known/Suspected MRSA, Hx Shingles, Hx Tuberculosis, Hx Known/ Suspected VRE, Hx Known/Suspected VRSA, History Other Infectious Disease, Traveled Outside the [place] in Last 30 Days - Family History Known Family History: Positive: Cardiac Disease, Hypertension, Diabetes, Other - alcoholism - Social History Alcohol Use: Daily Alcohol Amount: wine this week Hx Substance Use: No Substance Use Type: Reports: None Substance Use Comment - Amount & Last Used: 04/03/14 Hx Tobacco Use: Yes Smoking Status (MU): Light Every Day Tobacco Smoker Type: Cigarettes Length of Time of Smoking/Using Tobacco: 25 yrs Have You Smoked in the Last Year: No Review of Systems Positive: Skin Diaphoresis Neurological: Other - tremors Positive: Other - panic attacks, possible EtOH withdrawal All Other Systems Reviewed And Are Negative: Yes Physical Exam - Summary Physical Exam Summary: Appearance: Well-appearing, Well-nourished, lying in bed comfortable Skin: Warm, dry, no obvious rash Eyes: sclera anicteric, no conjunctival pallor ENT: mucous membranes moist Neck: deferred Respiratory: No signs of respiratory distress Cardiovascular: Appears well perfused, pulses are nml Abdomen: deferred Musculoskeletal: Moving all 4 extremities without obvious discomfort Neurological: Awake and alert, mentation is normal, speech is fluent and appropriate Psychiatric: affect is normal, does not appear anxious or depressed Triage Information Reviewed: Yes Vital Signs On Initial Exam: Initial Vitals Temp Pulse Resp BP Pulse Ox 97.9 F 88 16 138/101 92 04/30/18 00:27 04/30/18 00:27 04/30/18 00:27 04/30/18 00:27 04/30/18 00:27 Vital Signs Reviewed: Yes Diagnostics - Vital Signs Vital Signs Temp Pulse Resp BP Pulse Ox 04/30/18 00:27 97.9 F 88 16 138/101 92 - Laboratory Result Diagrams: 04/30/18 00:57 04/30/18 00:57 Lab Statement: Any lab studies that have been ordered have been reviewed, and results considered in the medical decision making process. Re-Evaluation - Re-Evaluation First Eval Re-Evaluation Time: 06:15 Change: Unchanged Comment: Patient states she is feeling anxious. She will be given Atarax. Course/Dx - Course Course Of Treatment: The patient is a 57 y/o F presenting to [facility] with a chief complaint of 'EtOH withdrawal' with tremors and diaphoresis in the last few days. She states that she used to be alcoholic, but had been sober for the last twenty years up until five weeks ago after she fell and broke her right cheekbone. She reported that having the alcohol mediates her panic attacks so she started drinking again. In the last week, she has noticed that she's been having the tremors and diaphoresis since cutting down on the amount of alcohol she's been drinking because she doesn't want to drink alcohol. She started out with drinking wine, but has been drinking about 3/4 L of liquor a day everyday in the last five weeks. She states that she was supposed to have an agency come to help her yesterday, but no one showed up. She states that when she woke up, she took a 'big swig of alcohol' and called 911. Her sister and mother have from EtOH withdrawal. He has hx of HTN, anemia, and heart murmur. Physical exam is negative. In the ED course, pt was given Atarax. Initial lab results reveal increase in monocytes and serum alchol of 325 but no other substances. She is diagnosed with alcohol abuse. Patient is a sign-out to Dr. Darion Lackey MD, at shift change at 0700 pending EtOH detox, MHE, and disposition. - Diagnoses Provider Diagnoses: Alcohol abuse Discharge - Sign-Out/Discharge Documenting (check all that apply): Sign-Out Patient Signing out patient TO: Darion Lackey - Patient is a sign-out to Dr. Darion Lackey MD, at shift change at 0700 pending EtOH detox, MHE, and disposition. - Discharge Plan Referrals: Jeny Hensley MD [Primary Care Provider] - - Attestation Statements Document Initiated by Scribe: Yes Documenting Scribe: Carmen Curry Provider For Whom Parish is Documenting (Include Credential): Dr. Kyaw Schuster MD Scribe Attestation: ICarmen, scribed for Dr. Kyaw Schuster MD on 04/30/18 at 0709. Scribe Documentation Reviewed: Yes Provider Attestation: The documentation as recorded by the Carmen mcnair accurately reflects the service I personally performed and the decisions made by me, Dr. Kyaw Schuster MD
[2018-04-30 01:23] LABS: EGFR Non-African American 106.8 (>60)
[2018-04-30 01:24] LABS: ABS Basophils 0 10^3/ul (0-0.2); ABS Eosinophils 0.1 10^3/ul (0-0.6); ABS Lymphocytes 1.9 10^3/ul (1.0-4.8); ABS Monocytes 0.7 10^3/ul (0-0.8); ABS Neutrophils 1.4 10^3/ul (1.5-7.7); ABS Nucleated RBC 0 10^3/ul; Eosinophil % 2.7 % (0-6); Hematocrit 36 % (35-47); Hemoglobin 12.5 g/dl (12.0-16.0); Mean Corpuscular HGB Conc 35 g/dl (31-36); Mean Corpuscular Hemoglobin 37 pg (27-31); Mean Corpuscular Volume 107 fL (80-97); Mean Platelet Volume 6.4 um3 (7.4-10.4); Nucleated Red Blood Cells % 0.1; Platelet Count 148 10^3/ul (150-450); Red Cell Distribution Width 17 % (10.5-15); White Blood Count 4.1 10^3/ul (3.5-10.8)
[2018-04-30] MEDS ORDERED: hydrOXYzine HCL TAB* 50 MG PO ONE (06:11)
--- NOTE | 2018-04-30 09:29 | ED ---
Progress - Progress Note Progress Note: This patient was signed out from Dr. Schuster awaiting MHE. After MHE by Price the patient will discharged home with a dx of anxiety ad alcoholism. - Consult/PCP Time Called: 07:00 Re-Evaluation - Re-Evaluation First Eval Re-Evaluation Time: 06:15 Change: Unchanged Comment: Patient states she is feeling anxious. She will be given Atarax. Course/Dx - Diagnoses Provider Diagnoses: Anxiety, Alcoholism Discharge - Sign-Out/Discharge Documenting (check all that apply): Patient Departure - Discharge Plan Condition: Stable Disposition: HOME Referrals: Jeny Hensley MD [Primary Care Provider] - - Attestation Statements Document Initiated by Scribe: Yes Documenting Scribe: Sourav Dodge Provider For Whom Scribe is Documenting (Include Credential): Darion Lackey MD Scribe Attestation: Sourav Hernandez , scribed for Darion Lackey MD on 04/30/18 at 0929.
[2018-04-30 09:56] VITALS: BP 155/90
== END 2018-04-30 09:53 | disposition home or self-care (01) ==
LOC: ED 00:19
DX: F10.20 Alcohol dependence, uncomplicated (principal); F10.239 Alcohol dependence with withdrawal, unspecified; F17.210 Nicotine dependence, cigarettes, uncomplicated
CPT/HCPCS: 36415; 80053; 80307; 80320; 85025; 99284; A9270-GY; G0480

== ENCOUNTER 2019-04-24 21:17 | Emergency (ER) | payer OTHER ==
[2019-04-24] MEDS ORDERED: Morphine 4 MG/ML VIAL (1 ml) 4 MG/ML VIAL IV PRN (21:22)
[2019-04-24] MEDS ORDERED: NS 0.9% 1000 ML** 1,000 ML IV ONE (21:22)
[2019-04-24] MEDS ORDERED: Morphine 4 MG/ML VIAL (1 ml) 4 MG/ML VIAL ONE (21:31)
[2019-04-24] MEDS: Morphine 4 MG/ML VIAL (1 ml) 4 MG/ML VIAL IV ONE ×2 (21:34→22:10)
--- NOTE | 2019-04-24 22:07 | ED ---
Upper Extremity Pain - HPI Summary HPI Summary: This patient is a 58 year old F presenting to [facility] by EMS with a chief complaint of left upper extremity pain since [employer]. Pt was drinking, lost balance and fell into a wall. The pain began immediately. Per triage, the patient rates the pain 10/10 in severity. Symptoms aggravated by movement. Per triage, patient denies LOC. Pt reports swelling. - History of Current Complaint Chief Complaint: EDExtremityUpper Stated Complaint: LEFT ARM INJURY PER PT Hx Obtained From: Patient Mechanism Of Injury: Direct Blow Timing: Constant Severity Initially: Severe Severity Currently: Severe Pain Location: Shoulder, Arm Character: Spasmodic Aggravating Factor(s): Movement Alleviating Factor(s): Nothing Associated Signs & Symptoms: Positive: Swelling - Allergies/Home Medications Allergies/Adverse Reactions: Allergies Allergy/AdvReac Type Severity Reaction Status Date / Time hydromorphone Allergy Altered Verified 10/23/18 13:17 Mental Status iodine Allergy Anaphylatic Verified 10/23/18 13:17 Shock olanzapine [From Zyprexa] Allergy Anaphylatic Verified 10/23/18 13:17 Shock Penicillins Allergy Swelling Verified 10/23/18 13:17 Of Face,Lips,& Throat shellfish derived Allergy Anaphylatic Verified 10/23/18 13:17 Shock Sulfa (Sulfonamide Allergy Rash Verified 10/23/18 13:17 Antibiotics) Home Medications: Home Medications Lexapro 10 mg 10 mg PO DAILY 04/24/19 [History Confirmed 04/24/19] PMH/Surg Hx/FS Hx/Imm Hx Endocrine/Hematology History: Reports: Hx Blood Transfusions - 2003, Hx Bone Marrow Disease, Hx Anemia - aplastic anemia, Hx Unexplained Bleeding Denies: Hx Anticoagulant Therapy, Hx Blood Disorders, Hx Diabetes, Hx Systemic Lupus Erythematosus, Hx Sickle Cell Disease, Hx Thyroid Disease, Other Endocrine/Hematological Disorders Cardiovascular History: Reports: Hx Hypertension, Other Cardiovascular Problems/ Disorders - HEART MURMUR Denies: Hx Aneurysm, Hx Angina, Hx Angioplasty, Hx Auto Implanted Cardiovert Defib, Hx Cardiac Arrest, Hx Cardiomegaly, Hx Congenital Heart Disease, Hx Congestive Heart Failure, Hx Coronary Artery Disease, Hx Deep Vein Thrombosis, Hx Embolism, Hx Hypercholesterolemia, Hx Hypotension, Hx Pacemaker/ICD, Hx Peripheral Vascular Disease, Hx Rheumatic Fever, Hx Syncope, Hx Valvular Heart Disease Respiratory History: Reports: Hx Seasonal Allergies Denies: Hx Asthma, Hx Chronic Bronchitis, Hx Chronic Obstructive Pulmonary Disease (COPD), Hx Cystic Fibrosis, Hx Lung Cancer, Hx Pleural Effusion, Hx Pneumonia, Hx Pulmonary Edema, Hx Pulmonary Embolism, Hx Sleep Apnea, Other Respiratory Problems/Disorders GI History: Reports: Hx Gastroesophageal Reflux Disease, Hx Ulcer - age 8 & 10 Denies: Hx Cirrhosis, Hx Crohn's Disease, Hx Diverticulosis, Hx Gall Bladder Disease, Hx Gastrointestinal Bleed, Hx Hiatal Hernia, Hx Irritable Bowel, Hx Jaundice, Hx Obstructive Bowel, Hx Ileostomy, Hx Pyloric Stenosis, Other GI Disorders History: Reports: Hx Kidney Stones - 2007, Other Problems/Disorders - urethritis Denies: Hx Acute Renal Failure, Hx Benign Prostatic Hyperplasia, Hx Chronic Renal Failure, Hx Dialysis, Hx Kidney Infection Musculoskeletal History: Reports: Hx Arthritis, Other Musculoskeletal History - fx 5th metatarsal 2 wks ago, wearing boot Denies: Hx Back Problems, Hx Bursitis, Hx Congenital Bone Abnormalities, Hx Fibromyalgia, Hx Gout, Hx Orthopedic Injury, Hx Osteoporosis, Hx Scoliosis, Hx Tendonitis Sensory History: Reports: Hx Contacts or Glasses - reading glasses Denies: Hx Cataracts, Hx Eye Injury, Hx Eye Prosthesis, Hx Glaucoma, Hx Legally Blind, Hx Macular Degeneration, Hx Vision Problem, Hx Deafness, Hx Hearing Aid, Hx Hearing Problem, Other Sensory Impairments Opthamlomology History: Reports: Hx Contacts or Glasses - reading glasses Denies: Hx Cataracts, Hx Eye Injury, Hx Eye Prosthesis, Hx Glaucoma, Hx Legally Blind, Hx Macular Degeneration, Hx Vision Problem, Other Sensory Impairments Neurological History: Reports: Other Neuro Impairments/Disorders - head injury Psychiatric History: Reports: Hx Anxiety, Hx Eating Disorder - Anorexia-last 17 years ago., Hx Depression, Hx Panic Disorder, Hx Post Traumatic Stress Disorder , Hx Inpatient Treatment - [facility], [facility], Hx Suicide Attempt - 1972, Hx Substance Abuse Denies: Hx Attention Deficit Hyperactivity Disorder, Hx Schizophrenia, Hx Bipolar Disorder, Hx of Violent Episodes Against Others, Other Psychiatric Issues/Disorders - Surgical History Surgery Procedure, Year, and Place: Attempted urethral enlargement age 7. Tubal ligation 1986. Breast implants 2006. Has had multiple implanted venous access devices; none currently. Hx Anesthesia Reactions: No - Immunization History Date of Tetanus Vaccine: up to date per patient Date of Influenza Vaccine: NONE Infectious Disease History: No Infectious Disease History: Denies: Hx Clostridium Difficile, Hx Hepatitis, Hx Human Immunodeficiency Virus (HIV), Hx of Known/Suspected MRSA, Hx Shingles, Hx Tuberculosis, Hx Known/ Suspected VRE, Hx Known/Suspected VRSA, History Other Infectious Disease, Traveled Outside the [place] in Last 30 Days - Family History Known Family History: Positive: Cardiac Disease, Hypertension, Diabetes, Other - alcoholism - Social History Alcohol Use: Daily Alcohol Amount: wine this week Hx Substance Use: No Substance Use Type: Reports: None Substance Use Comment - Amount & Last Used: 04/03/14 Hx Tobacco Use: Yes Smoking Status (MU): Light Every Day Tobacco Smoker Type: Cigarettes Length of Time of Smoking/Using Tobacco: 25 yrs Have You Smoked in the Last Year: No Review of Systems Negative: Fever Positive: Other - left upper extremity pain All Other Systems Reviewed And Are Negative: Yes Physical Exam - Summary Physical Exam Summary: Appearance: Well-appearing, Well-nourished, lying in bed comfortably Skin: Warm, dry, no obvious rash Eyes: sclera anicteric, no conjunctival pallor ENT: mucous membranes moist, pharynx appears normal Neck: Supple, nontender Respiratory: Clear to auscultation, no signs of respiratory distress Cardiovascular: Normal S1, S2. No murmurs. Normal distal pulses in tibial and radial bilaterally. Abdomen: Soft, nontender, normal active bowel sounds present Musculoskeletal: Normal, Strength/ROM Intact, Pain and marked tenderness and swelling of mid to proximal humerus on the left, distal pulse and vascular function intact, no break in skin. Neurological: A&Ox3, awake and alert, mentation is normal, speech is fluent and appropriate Psychiatric: affect is normal, does not appear anxious or depressed Triage Information Reviewed: Yes Vital Signs On Initial Exam: Initial Vitals Temp Pulse Resp BP Pulse Ox 98.0 F 66 18 146/79 99 04/24/19 21:23 04/24/19 21:23 04/24/19 21:23 04/24/19 21:23 04/24/19 21:23 Vital Signs Reviewed: Yes Procedures - Procedure Summary Procedure Summary: Splint placement: ortho glass customized, coaptation splint Diagnostics - Vital Signs Vital Signs Temp Pulse Resp BP Pulse Ox 04/24/19 21:34 22 04/24/19 21:23 98.0 F 66 18 146/79 99 - Laboratory Result Diagrams: 04/24/19 22:34 09/07/19 22:34 Lab Statement: Any lab studies that have been ordered have been reviewed, and results considered in the medical decision making process. - Radiology Humerus X-Ray Radiology Interpretation Completed By: ED Physician Summary of Radiographic Findings: Humerus X-Ray reveals, per ED physician, comminuted humeral shaft fracture with moderate angulation. Pending official radiology report. Shoulder X-Ray reveals Radiology Interpretation Completed By: ED Physician Summary of Radiographic Findings: Shoulder X-Ray reveals, per ED physician, comminuted humeral shaft fracture with moderate angulation. Pending official radiology report. Re-Evaluation - Re-Evaluation First Eval Re-Evaluation Time: 22:03 Comment: Spoke about plan of care with pt. Pt is still in pain and will be given some more pain medication. Second Eval Re-Evaluation Time: 22:05 Comment: Splint placed. Course/Dx - Course Course Of Treatment: This patient is a 58 year old F presenting to [facility] by EMS with a chief complaint of left upper extremity pain since [employer]. Pt was drinking, lost balance and fell into a wall. The pain began immediately. Per triage, the patient rates the pain 10/10 in severity. Symptoms aggravated by movement. Per triage, patient denies LOC. Pt reports swelling. Physical exam findings are nml except, pain and marked tenderness and swelling of mid to proximal humorous on the left. Humerus X-Ray reveals, per ED physician, comminuted humeral shaft fracture with moderate angulation. Pending official radiology report. Shoulder X-Ray reveals, per ED physician, comminuted humeral shaft fracture with moderate angulation. Pending official radiology report. Splint placement: ortho glass customized, coaptation splint. In the ED course the patient was given morphine 4 mg IV twice, and fluids. We discussed patient care with Dr. Esparza, and they recommended placing pt in splint and follow up in office. Patient will be discharged with follow up from Dr. Esparza. The patient is agreeable with this plan. - Diagnoses Provider Diagnoses: Fracture of left humerus - Physician Notifications Discussed Care of Patient With: Leo Esparza Time Discussed With Above Provider: 20:01 Instructed by Provider To: Other - Discussed case with Dr. Esparza, who recommends placing pt in splint and follow up in office. Discharge ED - Sign-Out/Discharge Documenting (check all that apply): Patient Departure - Discharge Patient Received Moderate/Deep Sedation with Procedure: No - Discharge Plan Condition: Good Disposition: HOME Prescriptions: Ondansetron ODT TAB* [Zofran 4 MG Odt TAB*] 8 mg PO Q6H PRN #15 tab.odt PRN Reason: Nausea oxyCODONE/Acetamin 5/325 MG* [Percocet 5/325 TAB*] 2 tab PO Q4H PRN #20 tab MDD 6 PRN Reason: Pain - Moderate Patient Education Materials: Arm Fracture in Adults (ED), Splint Care (ED) Referrals: Leo Esparza MD [Medical Doctor] - Additional Instructions: Call Dr. Esparza's office Friday. They will need to get you in early in the week. You may need surgery for this injury. In the meantime stay in the splint and take the pain medication. Through today you can use ice over the splint to help with pain and swelling. - Billing Disposition and Condition Condition: GOOD Disposition: Home - Attestation Statements Document Initiated by Parish: Yes Documenting Scribe: Andreea Jo Provider For Whom Parish is Documenting (Include Credential): Kyaw Schuster MD Scribe Attestation: Andreea Hernandez, chachoibed for Kyaw Schuster MD on 04/26/19 at 0617. Scribe Documentation Reviewed: Yes Provider Attestation: The documentation as recorded by the Andreea mcnair accurately reflects the service I personally performed and the decisions made by me, yKaw Schuster MD Status of Scribe Document: Viewed
[2019-04-24 22:42] LABS: ABS Basophils 0.1 10^3/ul (0-0.2); ABS Lymphocytes 1.4 10^3/ul (1.0-4.8); ABS Monocytes 0.7 10^3/ul (0-0.8); ABS Neutrophils 7.7 10^3/ul (1.5-7.7); Hematocrit 39 % (35-47); Hemoglobin 13.8 g/dL (12.0-16.0); Lymphocyte % 14.4 %; Mean Corpuscular HGB Conc 35 g/dL (31-36); Mean Corpuscular Hemoglobin 36 pg (27-31); Mean Corpuscular Volume 102 fL (80-97); Mean Platelet Volume 6.8 fL (7.4-10.4); Platelet Count 244 10^3/uL (150-450); Red Blood Count 3.83 10^6 /uL (3.70-4.87); Red Cell Distribution Width 16 % (10-15); White Blood Count 9.9 10^3/uL (3.5-10.8)
[2019-04-24 22:57] LABS: Albumin 4.4 g/dL (3.2-5.2); Albumin/Globulin Ratio 1.8 (1-3); BUN/Creatinine Ratio 20.3 (8-20); Calcium 8.5 mg/dL (8.6-10.3); EGFR African American 114.9 (>60); Globulin 2.5 g/dL (2-4); Total Bilirubin 0.4 mg/dL (0.2-1.0); Total Protein 6.9 g/dL (6.4-8.9)
[2019-04-25] MEDS: oxyCODONE/Acetamin 5/325 MG* TAB PO PRN ×2 (01:02→06:18)
[2019-04-25] MEDS: Ondansetron ODT TAB* 4 MG SL PRN ×2 (01:03→06:18)
[2019-04-25 06:46] VITALS: BP 155/115
== END 2019-04-25 06:46 | disposition home or self-care (01) ==
LOC: ED 21:17
DX: S42.202A Unspecified fracture of upper end of left humerus, initial encounter for closed fracture (principal); W22.01XA Walked into wall, initial encounter; Y92.9 Unspecified place or not applicable; I10 Essential (primary) hypertension; K21.9 Gastro-esophageal reflux disease without esophagitis; F41.9 Anxiety disorder, unspecified; F32.9 Major depressive disorder, single episode, unspecified; F43.10 Post-traumatic stress disorder, unspecified; F17.210 Nicotine dependence, cigarettes, uncomplicated; Z79.899 Other long term (current) drug therapy; Z88.5 Allergy status to narcotic agent; Z88.0 Allergy status to penicillin; Z88.2 Allergy status to sulfonamides; Z88.8 Allergy status to other drugs, medicaments and biological substances; Z91.041 Radiographic dye allergy status
CPT/HCPCS: 36415; 80053; 82550; 85025; 96361; 96374; 96376; 99284; A9270-GY; J2270

== ENCOUNTER 2019-04-26 07:14 | Emergency (ER) | payer OTHER ==
[2019-04-26 07:19] VITALS: BP 172/109
[2019-04-26] MEDS ORDERED: Morphine INJ* 2 MG/ML 1 ML SYRINGE (TWO MG - NEW SYRINGE VERSION) IM ONE (07:51)
--- NOTE | 2019-04-26 07:51 | ED ---
Upper Extremity Pain - HPI Summary HPI Summary: Pt. is a 58 y.o female who presents to ER for increase swelling to left arm x 1 day. Pt. seen in ED 2 days ago and dx with a humeral fx. Pt. states she noticed increased swelling to left arm and presents for re-evaluation. Denies CP, SOB, numbness, tingling, or weakness to arm. Pt. took percocet [employer]. Sxs are moderate in severity. No current modifying factors. - History of Current Complaint Chief Complaint: EDExtremityUpper Stated Complaint: L ARM SWELLING PER PT Time Seen by Provider: 04/26/19 07:23 Hx Obtained From: Patient - Allergies/Home Medications Allergies/Adverse Reactions: Allergies Allergy/AdvReac Type Severity Reaction Status Date / Time hydromorphone Allergy Altered Verified 10/23/18 13:17 Mental Status iodine Allergy Anaphylatic Verified 10/23/18 13:17 Shock olanzapine [From Zyprexa] Allergy Anaphylatic Verified 10/23/18 13:17 Shock Penicillins Allergy Swelling Verified 10/23/18 13:17 Of Face,Lips,& Throat shellfish derived Allergy Anaphylatic Verified 10/23/18 13:17 Shock Sulfa (Sulfonamide Allergy Rash Verified 10/23/18 13:17 Antibiotics) PMH/Surg Hx/FS Hx/Imm Hx Previously Healthy: Yes Endocrine/Hematology History: Reports: Hx Blood Transfusions - 2003, Hx Bone Marrow Disease, Hx Anemia - aplastic anemia, Hx Unexplained Bleeding Denies: Hx Anticoagulant Therapy, Hx Blood Disorders, Hx Diabetes, Hx Systemic Lupus Erythematosus, Hx Sickle Cell Disease, Hx Thyroid Disease, Other Endocrine/Hematological Disorders Cardiovascular History: Reports: Hx Hypertension, Other Cardiovascular Problems/ Disorders - HEART MURMUR Denies: Hx Aneurysm, Hx Angina, Hx Angioplasty, Hx Auto Implanted Cardiovert Defib, Hx Cardiac Arrest, Hx Cardiomegaly, Hx Congenital Heart Disease, Hx Congestive Heart Failure, Hx Coronary Artery Disease, Hx Deep Vein Thrombosis, Hx Embolism, Hx Hypercholesterolemia, Hx Hypotension, Hx Pacemaker/ICD, Hx Peripheral Vascular Disease, Hx Rheumatic Fever, Hx Syncope, Hx Valvular Heart Disease Respiratory History: Reports: Hx Seasonal Allergies Denies: Hx Asthma, Hx Chronic Bronchitis, Hx Chronic Obstructive Pulmonary Disease (COPD), Hx Cystic Fibrosis, Hx Lung Cancer, Hx Pleural Effusion, Hx Pneumonia, Hx Pulmonary Edema, Hx Pulmonary Embolism, Hx Sleep Apnea, Other Respiratory Problems/Disorders GI History: Reports: Hx Gastroesophageal Reflux Disease, Hx Ulcer - age 8 & 10 Denies: Hx Cirrhosis, Hx Crohn's Disease, Hx Diverticulosis, Hx Gall Bladder Disease, Hx Gastrointestinal Bleed, Hx Hiatal Hernia, Hx Irritable Bowel, Hx Jaundice, Hx Obstructive Bowel, Hx Ileostomy, Hx Pyloric Stenosis, Other GI Disorders History: Reports: Hx Kidney Stones - 2008, Other Problems/Disorders - urethritis Denies: Hx Acute Renal Failure, Hx Benign Prostatic Hyperplasia, Hx Chronic Renal Failure, Hx Dialysis, Hx Kidney Infection Musculoskeletal History: Reports: Hx Arthritis, Other Musculoskeletal History - fx 5th metatarsal 2 wks ago, wearing boot Denies: Hx Back Problems, Hx Bursitis, Hx Congenital Bone Abnormalities, Hx Fibromyalgia, Hx Gout, Hx Orthopedic Injury, Hx Osteoporosis, Hx Scoliosis, Hx Tendonitis Sensory History: Reports: Hx Contacts or Glasses - reading glasses Denies: Hx Cataracts, Hx Eye Injury, Hx Eye Prosthesis, Hx Glaucoma, Hx Legally Blind, Hx Macular Degeneration, Hx Vision Problem, Hx Deafness, Hx Hearing Aid, Hx Hearing Problem, Other Sensory Impairments Opthamlomology History: Reports: Hx Contacts or Glasses - reading glasses Denies: Hx Cataracts, Hx Eye Injury, Hx Eye Prosthesis, Hx Glaucoma, Hx Legally Blind, Hx Macular Degeneration, Hx Vision Problem, Other Sensory Impairments Neurological History: Reports: Other Neuro Impairments/Disorders - head injury Psychiatric History: Reports: Hx Anxiety, Hx Eating Disorder - Anorexia-last 17 years ago., Hx Depression, Hx Panic Disorder, Hx Post Traumatic Stress Disorder , Hx Inpatient Treatment - [facility], [facility], Hx Suicide Attempt - 1972, Hx Substance Abuse Denies: Hx Attention Deficit Hyperactivity Disorder, Hx Schizophrenia, Hx Bipolar Disorder, Hx of Violent Episodes Against Others, Other Psychiatric Issues/Disorders - Surgical History Surgery Procedure, Year, and Place: Attempted urethral enlargement age 7. Tubal ligation 1986. Breast implants 2006. Has had multiple implanted venous access devices; none currently. Hx Anesthesia Reactions: No - Immunization History Date of Tetanus Vaccine: up to date per patient Date of Influenza Vaccine: NONE Infectious Disease History: No Infectious Disease History: Denies: Hx Clostridium Difficile, Hx Hepatitis, Hx Human Immunodeficiency Virus (HIV), Hx of Known/Suspected MRSA, Hx Shingles, Hx Tuberculosis, Hx Known/ Suspected VRE, Hx Known/Suspected VRSA, History Other Infectious Disease, Traveled Outside the [place] in Last 30 Days - Family History Known Family History: Positive: Cardiac Disease, Hypertension, Diabetes, Other - alcoholism - Social History Occupation: Unemployed Lives: Alone Alcohol Use: Daily Alcohol Amount: wine this week Hx Substance Use: No Substance Use Type: Reports: None Substance Use Comment - Amount & Last Used: 04/03/14 Hx Tobacco Use: Yes Smoking Status (MU): Light Every Day Tobacco Smoker Type: Cigarettes Length of Time of Smoking/Using Tobacco: 25 yrs Have You Smoked in the Last Year: No Review of Systems Constitutional: Negative Negative: Fever, Chills Cardiovascular: Negative Negative: Chest Pain Respiratory: Negative Negative: Shortness Of Breath Positive: Other - Left arm swelling Neurological: Negative Negative: Weakness, Paresthesia, Numbness All Other Systems Reviewed And Are Negative: Yes Physical Exam Triage Information Reviewed: Yes Vital Signs On Initial Exam: Initial Vitals Temp Pulse Resp BP Pulse Ox 97.6 F 83 18 172/109 96 04/26/19 07:16 04/26/19 07:16 04/26/19 07:16 04/26/19 07:16 04/26/19 07:16 Vital Signs Reviewed: Yes Appearance: Positive: Well-Appearing - Pt. sitting on bed in NAD. Skin: Positive: Warm, Dry Head/Face: Positive: Normal Head/Face Inspection Eyes: Positive: Normal, EOMI, Conjunctiva Clear Neck: Positive: Supple Musculoskeletal: Positive: Other - Splint and sling on left arm. Good radial pulse. No neurosensory deficits. Moderate edema to left hand. Neurological: Positive: Normal, CN Intact II-III Psychiatric: Positive: Affect/Mood Appropriate Diagnostics - Vital Signs Vital Signs Temp Pulse Resp BP Pulse Ox 04/26/19 07:16 97.6 F 83 18 172/109 96 - Laboratory Lab Statement: Any lab studies that have been ordered have been reviewed, and results considered in the medical decision making process. Course/Dx - Course Course Of Treatment: Pt. with increasing edema and pain to left arm with known humeral fx. No signs of compartment syndrome. U/S ordered to r/o DVT. Attempted to take down pt.'s splint for u/s and she was unable to tolerate secondary to pain. Pt. refusing u/s at this point. IM morphine ordered. Will reassess pain. Pt. notes pain has improved after morphine but pt. still refuses attempting u/ s. Pt. aware of risk of not performing U/S. Pt. understands risk and would like to sign out AMA. Pt. has decision making capacity. Offered to schedule pt.'s ortho apt. but pt. states she will schedule it herself when she returns home. Pt. to ice and elevate. Pt. signed out AMA. - Diagnoses Provider Diagnoses: Humeral fracture, Arm edema Discharge ED - Sign-Out/Discharge Documenting (check all that apply): Patient Departure Patient Received Moderate/Deep Sedation with Procedure: No - Discharge Plan Condition: Stable Disposition: AGAINST MEDICAL ADVICE Patient Education Materials: Arm Fracture in Adults (ED) Referrals: Dante Faria MD [Medical Doctor] - Hilda Valdez MD [Primary Care Provider] - Additional Instructions: You declined ultrasound of left arm to evaluate for possible blood clot Call the orthopedic clinic today to schedule an appointment as soon as possible Keep splint in place Ice and elevate Pain medication as directed Return to ER if symptoms change or worsen - Billing Disposition and Condition Condition: STABLE Disposition: Against Medical Advice
[2019-04-26] MEDS ORDERED: Morphine 4 MG/ML VIAL (1 ml) 4 MG/ML VIAL ONE (08:12)
[2019-04-26] MEDS ORDERED: Morphine 4 MG/ML VIAL (1 ml) 4 MG/ML VIAL IV ONE (08:13)
== END 2019-04-26 08:53 | disposition left against medical advice (07) ==
LOC: ED 07:14
DX: S42.302D Unspecified fracture of shaft of humerus, left arm, subsequent encounter for fracture with routine healing (principal); R60.9 Edema, unspecified; I10 Essential (primary) hypertension; K21.9 Gastro-esophageal reflux disease without esophagitis; Z87.442 Personal history of urinary calculi; F41.9 Anxiety disorder, unspecified; F32.9 Major depressive disorder, single episode, unspecified; Z86.79 Personal history of other diseases of the circulatory system; D64.9 Anemia, unspecified; F17.210 Nicotine dependence, cigarettes, uncomplicated; X58.XXXD Exposure to other specified factors, subsequent encounter
CPT/HCPCS: 96374; 99282; J2270

== ENCOUNTER 2019-05-11 08:23 | Observation (INO) | payer OTHER ==
[~2019-05-11 08:23] MED LIST changes: +Buffered Lidocaine 1% SYRIN* 1 ML/SYRINGE INTRADERM ONE; +Famotidine IV* 10 MG/ML 2 ML (20 mg) IV ONE; -LORazepam TAB(*) 1 MG PO ONE; +Lactated Ringers 1000 ML Bag* 1,000 ML IV SCH; +Levalbuterol 0.63MG/3ML NEB* UNIT OF USE INH PRN
[2019-05-11] MEDS ORDERED: Clindamycin 900 MG/D5W BAG(*) 900 MG/50 ML BAG IVPB ONE (09:06)
[2019-05-11] MEDS ORDERED: Levalbuterol 0.63MG/3ML NEB* UNIT OF USE INH ONE (09:06)
[2019-05-11] MEDS ORDERED: Famotidine IV* 10 MG/ML 2 ML (20 mg) ONE (09:07)
[2019-05-11] MEDS ORDERED: fentaNYL* 50 MCG/ML 2 ML VIAL (100 MCG VIAL) ONE ×6 (11:07→17:12)
[2019-05-11] MEDS ORDERED: Midazolam* 1 MG/ML 2 ML VIAL (2 MG) ONE (11:07)
[2019-05-11] MEDS ORDERED: Lidocaine 2% PF * 5 ML VIAL ONE (11:30)
[2019-05-11] MEDS ORDERED: Dexamethasone IV* 4 MG/ML 1 ML (4 MG) ONE (11:31)
[2019-05-11] MEDS ORDERED: Rocuronium* 10 MG/ML VIAL ONE (11:36)
[2019-05-11] MEDS ORDERED: Levalbuterol 0.63MG/3ML NEB* UNIT OF USE INH PRN (12:44)
[2019-05-11] MEDS ORDERED: DiMENhydriNATE IV* 50 MG/ML VIAL IV PUSH PRN (12:44)
[2019-05-11] MEDS ORDERED: diPHENhydraMINE IV* 50 MG/ML 1 ml VIAL (BENADRYL) IV PRN ×2 (12:44→17:32)
[2019-05-11] MEDS ORDERED: Naloxone* 0.4 MG/ML 1 ML VIAL IV PRN (12:44)
[2019-05-11] MEDS ORDERED: Ondansetron INJ* 2 MG/ML VIAL IV PRN ×2 (12:44→17:32)
[2019-05-11] MEDS ORDERED: Acetaminophen TAB* 325 MG PO PRN (12:44)
[2019-05-11] MEDS ORDERED: Acetaminophen IV 1GM/100ML * 100 ML ONE (14:55)
[2019-05-11] MEDS ORDERED: Ondansetron INJ* 2 MG/ML VIAL ONE (14:56)
[2019-05-11] MEDS ORDERED: Bupivacaine 0.25% W/EPI* 10 ML SDV ONE (15:05)
[2019-05-11] MEDS ORDERED: Bupivacaine 0.5%* 50 ML MDV VIAL ONE (15:05)
[2019-05-11] MEDS ORDERED: Ketorolac INJ* 30 MG/ML 1 ML VIAL ONE (15:11)
[2019-05-11] MEDS: fentaNYL* 50 MCG/ML 2 ML VIAL (100 MCG VIAL) IV PRN ×5 (16:16→17:17)
[2019-05-11] MEDS ORDERED: oxyCODONE/Acetamin 5/325 MG* TAB ONE ×2 (17:12→17:21)
[2019-05-11] MEDS ORDERED: oxyCODONE/Acetamin 5/325 MG* TAB PO PRN (17:32)
[2019-05-11] MEDS ORDERED: Morphine INJ* 2 MG/ML 1 ML SYRINGE (TWO MG - NEW SYRINGE VERSION) IV PRN (17:32)
[2019-05-11] MEDS ORDERED: Magnesium Hydroxide LIQ* 30 ML UDC PO PRN (17:32)
[2019-05-11] MEDS ORDERED: Ondansetron ODT TAB* 4 MG PO PRN ×2 (17:32→17:45)
[2019-05-11] MEDS ORDERED: diPHENhydraMINE PO* 25 MG PO PRN (17:32)
[2019-05-11] MEDS ORDERED: clonazePAM TAB(*) 1 MG PO PRN (17:45)
[2019-05-11] MEDS ORDERED: Gabapentin CAP(*) 100 MG PO PRN (17:45)
[2019-05-11] MEDS ORDERED: Lactated Ringers 1000 ML Bag* 1,000 ML IV SCH (18:00)
[2019-05-11] MEDS: ceFAZolin 1 GM ADVAN(*) 1 GM in NS 0.9% 50 ML* 50 ML IVPB SCH (20:59)
[2019-05-11] MEDS: Ibuprofen TAB* 600 MG PO PRN (21:10)
[2019-05-11] MEDS: Magnesium Hydroxide LIQ* 30 ML UDC PO SCH (21:10)
[2019-05-11] MEDS: Docusate CAP* 100 MG PO SCH (21:10)
[2019-05-11] MEDS: oxyCODONE/Acetamin 5/325 MG* TAB PO PRN (21:11)
[2019-05-11] MEDS: Acetaminophen TAB* 325 MG PO SCH (21:18)
[2019-05-11] MEDS ORDERED: Nicotine Lozenge* mini 4 MG LOZNG.MINI MT PRN (22:00)
[2019-05-12] MEDS: oxyCODONE/Acetamin 5/325 MG* TAB PO PRN ×2 (02:12→07:39)
[2019-05-12] MEDS: ceFAZolin 1 GM ADVAN(*) 1 GM in NS 0.9% 50 ML* 50 ML IVPB SCH (03:39)
[2019-05-12] MEDS: Ibuprofen TAB* 600 MG PO PRN ×2 (03:39→10:05)
[2019-05-12] MEDS: Cyclobenzaprine TAB* 10 MG PO PRN ×2 (03:45→10:04)
--- NOTE | 2019-05-12 03:52 | OP ---
DATE OF OPERATION: 05/11/19 - ROOM #335 DATE OF : 58 SURGEON: Dante Faria MD MEDICAL RESEARCH SCIENTIST: LIZBET Bell. A physician information technology assistant was required for the length of the procedure for assistance with the patient's positioning, retraction, instrumentation, and closure. ANESTHESIOLOGIST: Alessio Ca MD ANESTHESIA: General anesthesia, local anesthesia with 20 cc of Marcaine 0.25% with epinephrine. PRE-OP DIAGNOSES: 1. Left humerus shaft fracture, segmental, comminuted, displaced. 2. Left proximal humerus fracture, an extension from the humeral shaft fracture. POST-OP DIAGNOSIS: 1. Left humerus shaft fracture, segmental, comminuted, displaced. 2. Left proximal humerus fracture, an extension from the humeral shaft fracture. OPERATIVE PROCEDURE: 1. Open reduction and internal fixation of a left humerus shaft fracture. 2. Open reduction and internal fixation of a left proximal humerus fracture. INDICATIONS: The patient is a 58-year-old woman, right hand dominant, who injured herself on 04/24/19, 17 days preoperatively. The patient was seen in the emergency room and then by me in the clinic on 04/27/19. The patient had been placed in a coaptation splint by the emergency room and I maintained that. I took the patient out of the sling and instead added a swathe between her wrist and her neck to allow the gravity to improve the reduction of the patient' s comminuted, segmental humerus shaft fracture with extension into the proximal humerus. The reduction did improve significantly from the patient's 04/24/19 x- rays to her x-rays on 05/04/19. However, she has still had some deformity, 15 degrees of apex angulation, posterior translation, that might be more noticeable in this patient given her thin habitus. Also, the fracture had a significant amount of comminution and segmentation with segmental fracture fragments. I told the patient that this injury could be treated non-operatively or operatively and I laid out multiple pros and cons of each strategy. The patient was very interested in surgery. Discussed at length risks and potential complications of surgery. Therefore, we decided to go with surgery instead of fitting the patient for a Dolan brace. The patient actually thought about it after her second visit on 05/04/19 , and returned on 05/06/19 for a history and physical having decided definitively on surgery. I spoke to the patient about stopping cigarette smoking and I asked her about her fall risk and the patient assured me that her 04/24/19 injury was an aberration, unusual event. The patient's preoperative process was notable for some type of loud phone interaction on 05/07/19, with a member of preadmission testing. I am not sure exactly what went on in that call, but the patient has been very respectful and gracious and soft spoken with me. I detailed that event elsewhere in the record. I tried to reach the patient by phone over the weekend , was able to get in touch with her yesterday, 05/10/19, and she assured me that she wanted to go forward with surgery and that she had indeed accomplished pre-admission testing. ANTIBIOTICS: Clindamycin 900 mg IV. IV FLUIDS: See Anesthesia note. [id number]-[id number] TIME: Approximately 185 minutes. SPECIMEN: None. IMPLANTS: Synthes proximal humerus lateral locking plate with distal extension. This was a 10-hole plate with many more than 10 holes to it. I also used multiple lag screws in the humeral shaft, some temporary and some permanent, using 3.5-mm fully threaded cortical screws placed using lag technique. COMPLICATIONS: None. ESTIMATED BLOOD LOSS: Minimal. DESCRIPTION OF PROCEDURE: In the preoperative holding, the patient signed a written consent. Operative extremity was marked in preoperative holding. The patient was taken back to the operating room and placed supine on the operating room table. The patient was sedated and intubated. A hand table was applied to the table. I brought a C-arm and confirmed that I could obtain x-ray images of the shoulder to the elbow, AP and lateral. I was happy with this position. The shoulder was not fully abducted on the hand table. It was held throughout the procedure in anywhere from an angle of 20 to 45 degrees of abduction, comfortable position for the patient. Left upper extremity was prepped and draped. Surgical time-out was performed. Skin incision was made starting at the coracoid, to the level of the deltoid insertion consistent with a deltopectoral approach and then down the anterior aspect of the upper arm consistent with the anterolateral approach to the humeral shaft. I dissected down through subcutaneous tissue, started my dissection proximally, found the deltopectoral interval, took the cephalic vein lateral. Nicely opened up the deltopectoral interval, placed retractors, removed some clavipectoral fascia and had a nice view of the subscapularis tendon, the biceps tendon and the pectoralis major and latissimus tendon. Dissected down more distally and encountered the deltoid distally. Retracted the biceps muscles and tendon medially and encountered the brachialis. Of note , I did note the musculocutaneous nerve on the undersurface of the biceps muscle. That was respected throughout the procedure. I encountered the brachialis. I split it longitudinally. I thought I had split it medial two-thirds and lateral one-third, but it may have been closer to half and a half. I split it and dissected down to bone. Several times during the procedure, I continued my dissection additionally distally to ensure adequate exposure. I encountered a humeral shaft proximal humerus with multiple fracture lines. I curetted and rongeured, debrided multiple different fracture sites to improve reduction. I next went about putting back together the humerus. I incised the top aspect of the pectoralis major and snuck a screw from anterior to posterior just medial to the long head of the biceps and just superior to the pectoralis major tendon. I placed this bicortically to get to one of the higher fracture lines. I next moved distally. I placed an additional 3.5-mm screws using lag technique from anteromedial to posterior. That held these 2 fracture fragments together nicely. I then attempted to bring together the 2 most distal fracture fragments. This required some manipulation to get these back together and some additional soft tissue debridement. Finally, I was able to effect a good reduction and I placed 2 lag screws from anteromedial to posterior to hold these fragments together. I next took the 2 humerus fragments remaining, each had multiple fragments to them, and I tried to put a lag screw connecting these 2 fragments but the fracture site was too comminuted and transverse for this, so I had to hold that reduction in place. I saw that it would reduce. I next sized the appropriate plate length, 10-holed Synthes lateral locking plate, proximal humerus, the newer model. I picked an appropriate height and filled the oval hole more proximally with a non-locking screw. I obtained a reduction at the fracture site and I placed a non-locking screw to one of the distal holes into the distal humeral shaft. I brought plate to bone proximally and distally and was very happy that the plate did not appear to need any contouring, and the plate was brought to bone. There was some minimal deformity at one of the fracture sites of the proximal to mid humerus. I was able to actually use a non-locking screw to reduce the displacement at this fracture site. I was very happy with it. That non- locking screw was long and I replaced it later with a shorter more appropriate length screw. I next filled multiple screws along the plate. I had 4 screws at the proximal most and distal most end of the fracture. I placed several screws intermediate through the plate. One of my initial lag screws that I had placed from medial to long head of the biceps tendon noted to be just proud bicortically just distal to the humeral head. I considered placing a smaller screw, but I noted that the purchase was not great in bone, so I just removed that screw. Irrigation. Closure of the brachialis fascia with [id number] stitches using Vicryl 0 suture. Closure of the deltopectoral interval with a running stitch using Ethibond 0 suture. Closure of the subcutaneous tissue along the length of the incision with buried simple stitches using Vicryl 2-0 suture. Closure of the skin with wanda. Local anesthesia was placed along the length of the incision, approximately 20 cc of Marcaine 0.25% with epinephrine. Xeroform, 4x4s, ABDs, foam tape. The patient was placed in a sling. The patient was awakened, extubated, and transferred to PACU. DISPOSITION: Our initial intention was to discharge the patient home. After a stay in the PACU of a required length of time, the patient was unable to be discharged home because of pain and inability to ambulate. She was therefore admitted to my service for observation. Overnight, the patient was to be given IV and oral pain medication as needed. She was to receive IV antibiotics, Ancef 1 g IV q.8 hours x24 hours postoperatively or until she is discharged to home. The patient will follow up with me in clinic 10 to 14 days postoperatively. Wound care instructions provided. [id number]/CPS #: [id number] MTDD
[2019-05-12] MEDS: Acetaminophen TAB* 325 MG PO SCH (05:31)
[2019-05-12 06:48] LABS: Hematocrit 32 % (35-47); Hemoglobin 11.1 g/dL (12.0-16.0); Mean Platelet Volume 6.7 fL (7.4-10.4); Platelet Count 271 10^3/uL (150-450)
[2019-05-12 07:12] LABS: BUN/Creatinine Ratio 21.3 (8-20); EGFR African American 88.8 (>60); EGFR Non-African American 73.4 (>60); Potassium 4.1 mmol/L (3.5-5.0)
[2019-05-12 08:05] VITALS: BP 120/72
--- NOTE | 2019-05-12 08:26 | PN ---
Progress Note - Progress Note Date of Service: 05/12/19 SOAP: Subjective: []Pt seen at bedside. She feels well, her lue is sore though tolerable. Denies CP, SOB, dizziness or nausea. Objective: []Gen: appears well, NAD LUE: Dressing CDI. Wrist f/e intact. Able to f/e MTPs, okay sign, thumbs up and cross finger sign intact. Sensation intact to light touch distally. Radial pulse 2+, cap refill less than two seconds distally. Assessment: [] 1. Left humerus shaft fracture, segmental, comminuted, displaced. 2. Left proximal humerus fracture, an extension from the humeral shaft fracture. POD 1 sp 1. Open reduction and internal fixation of a left humerus shaft fracture. 2. Open reduction and internal fixation of a left proximal humerus fracture. Plan: []NWB LIZZETH F/U Dr Faria 10-14 days post op Wound care instructions provided to pt by Dr Faria post op DC to home today Vital Signs Temp 98.5 F 05/12/19 08:04 Pulse 68 05/12/19 08:04 Resp 16 05/12/19 08:04 BP 120/72 05/12/19 08:04 Pulse Ox 97 05/12/19 08:04 Intake & Output 05/11/19 05/12/19 05/12/19 18:59 06:59 18:59 Intake Total 675 1890 Balance 675 1890 Weight 150 lb Intake: IV Fluids 450 408 CLINDAMYCIN 900MG 50 LR 400 408 IVPB 102 ABX - CEFAZOLIN 102 Oral 225 1380 Other: Estimated Void Medium Large # Voids 1 3 Laboratory Last Values Hgb 11.1 g/dL (12.0-16.0) L 05/12/19 06:11 Hct 32 % (35-47) L 05/12/19 06:11 Plt Count 271 10^3/uL (150-450) 05/12/19 06:11 MPV 6.7 fL (7.4-10.4) L 05/12/19 06:11 Sodium 135 mmol/L (135-145) 05/12/19 06:11 Potassium 4.1 mmol/L (3.5-5.0) 05/12/19 06:11 Chloride 102 mmol/L (101-111) 05/12/19 06:11 Carbon Dioxide 27 mmol/L (22-32) 05/12/19 06:11 Anion Gap 6 mmol/L (2-11) 05/12/19 06:11 BUN 17 mg/dL (6-24) 05/12/19 06:11 Creatinine 0.80 mg/dL (0.51-0.95) 05/12/19 06:11 Est GFR ( Amer) 88.8 (>60) 05/12/19 06:11 Est GFR (Non-Af Amer) 73.4 (>60) 05/12/19 06:11 BUN/Creatinine Ratio 21.3 (8-20) H 05/12/19 06:11 Glucose 167 mg/dL (70-100) H 05/12/19 06:11 Calcium 9.0 mg/dL (8.6-10.3) 05/12/19 06:11 <Maye Gary - Last Filed: 05/12/19 09:24> - Progress Note SOAP: Subjective: The patient had pain, decreased from yesterday. Objective: LUE: dressing c/d/i. NVID. Reluctant to flex elbow and supinate forearm because of pain, but has intact active function of both. Assessment: As above Plan: - Oral antibiotics x 7 days - Sling - To start PT next week - Follow up with me in 10-14 weeks - Needs to reduce tobacco use - Dispo to home <Dante Faria - Last Filed: 05/12/19 23:26>
[2019-05-12] MEDS: Docusate CAP* 100 MG PO SCH (08:57)
[2019-05-12] MEDS: Magnesium Hydroxide LIQ* 30 ML UDC PO SCH (08:57)
[2019-05-12] MEDS ORDERED: Thiamine TAB* 100 MG TAB PO SCH (09:00)
[2019-05-12] MEDS ORDERED: Folic Acid TAB* 1 MG PO SCH (09:00)
[2019-05-12] MEDS ORDERED: Atenolol TAB* 25 MG PO SCH (09:00)
[2019-05-12] MEDS ORDERED: Cyanocobalamin INJ * 1,000 MCG/ML VIAL 1 ML VIAL IM SCH (09:00)
[2019-05-12] MEDS ORDERED: MEDROXYPR PO SCH (09:00)
[2019-05-12] MEDS ORDERED: ESTROGENS PO SCH (09:00)
[2019-05-12] MEDS ORDERED: Vitamin THERAPEUTIC TAB PO SCH (09:00)
--- NOTE | 2019-05-12 09:38 | DS ---
Orthopedic Discharge Summary - Discharge Summary Date of Admission:05/11/19 Date of Discharge: 05/12/19 Date of Surgery: 05/11/19 Attending Orthopedic Provider: Dr Faria Pre-operative Diagnosis: Left humerus fracture Operative Procedure: Open reduction and internal fixation of a left humerus shaft fracture. Open reduction and internal fixation of a left proximal humerus fracture. Disposition of Patient: home Condition of Patient: stable History: HENRI BROUSSARD is a 58 year old F with a left humerus fracture. Hospital Course: HENRI was admitted to [facility] on 05/11/19. Patient underwent a left humerus ORIF without complication followed by a brief recovery in PACU and transfer to the Short Stay Surgical Unit in stable condition. This was booked as an outpt procedure but due to pain and lack of transportation home she stayed the night. Post-op day 1: patient was alert and in no acute distress. Dressing was clean, dry and intact. Able to f/e at wrist and MTPs. NVI distally. Stable for DC home. Home Medications Medication Instructions Recorded Confirmed Type Atenolol TAB* [Tenormin TAB* 25 MG] 25 mg PO QAM 10/23/18 05/11/19 History Estrogens/Medroxypr 0.625(NF) 1 tab PO QAM 10/23/18 05/11/19 History [Prempro 0.625/2.5(NF)] Gabapentin CAP(*) [Neurontin 100 100 mg PO DAILY PRN 10/23/18 05/11/19 History mg CAP(*)] hydrOXYzine HCL TAB* [Atarax 10 MG 10 mg PO 1200 10/23/18 05/11/19 History TAB*] Ondansetron ODT TAB* [Zofran 4 MG 8 mg PO Q6H PRN #15 tab.odt 04/25/19 05/11/19 Rx Odt TAB*] Cyanocobalamin INJ * [Vitamin B12 1,000 mcg IM MONTHLY 05/07/19 05/11/19 History INJ *] Folic Acid 1 mg PO QAM 05/07/19 05/11/19 History Ibuprofen 600 mg PO Q6H PRN 05/07/19 05/11/19 History Nicotine Mini Lozenge 1 tab PO DAILY 05/07/19 05/11/19 History Thiamine HCl [Vitamin B-1] 50 mg PO QAM 05/07/19 05/11/19 History clonazePAM [Clonazepam] 1 mg PO DAILY PRN 05/07/19 05/11/19 History Acetaminophen TAB* [Tylenol TAB*] 975 mg PO Q8HR tab 05/12/19 Rx Docusate CAP* [Colace Cap*] 100 mg PO BID PRN #90 cap 05/12/19 Rx Oxycodone HCl 5 mg PO Q4HR PRN #56 tablet MDD 8 05/12/19 Rx nonweightbearing left upper extremity. Wear your sling at all times. Wait until your first appt to discuss with Dr Faria when to start physical therapy Pain : oxycodone 5 mg- 1 tab for moderate pain and 2 tabs for severe pain as needed every 4 hours. Hold for sedation. Wean off as soon as pain allows. Max of 8 tabs in one day. Do not take percocet along with oxycodone, you may take one or the other. Antibiotic: keflex 500 mg every 8 hours for 7 days Dressing: Keep intact x 3 days post op. Maintain a dry sterile dressing over incisions for at least 7 days after surgery. May shower 3 days after surgery. Do not submerge for 4 weeks after surgery If you develop chest pain or shortness of breath go to the emergency room If you develop fever, chills, redness, drainage, increased pain please call the orthopedic office. Call the orthopedic office to make an appt as well as with any questions ( [phone])
[2019-05-12] MEDS ORDERED: hydrOXYzine HCL TAB* 10 MG PO SCH (12:00)
[2019-05-13] MEDS ORDERED: Bisacodyl SUPP* 10 MG SUPP PR PRN (17:32)
== END 2019-05-12 10:39 | disposition home or self-care (01) ==
LOC: OR 08:23 → SSU 17:32 → OBSVTOIN 17:32 → INTOOBSV 17:32 → UNDOADMOB 19:05 → SSU 19:05 → INTOOBSV 19:05 → SSU 19:24
PROVIDERS: ADMIT Orthopaedic Surgery; ATTEND Orthopaedic Surgery
DX: S42.292D Other displaced fracture of upper end of left humerus, subsequent encounter for fracture with routine healing (principal); X58.XXXD Exposure to other specified factors, subsequent encounter; D61.9 Aplastic anemia, unspecified; F17.210 Nicotine dependence, cigarettes, uncomplicated; Z88.0 Allergy status to penicillin; Z88.2 Allergy status to sulfonamides; Z79.899 Other long term (current) drug therapy
CPT/HCPCS: 36415; 76000; 80048; 85014; 85018; 85049; 96374; 96375; A9270-GY; G0378; J0690; J1100; J1885; J2250; J2405; J3010; J3420; J3490